=== PATIENT | male | born 1935 | race Caucasian/White ===

== ENCOUNTER → 2016-04-06 | Outpatient (CLI) | payer MEDICARE, BC ==
[2016-04-06 13:27] VITALS: BP 130/60; PULSE 49; RESP 18
--- NOTE | 2016-04-06 13:56 | P.PN ---
Progress Note - Text Patient returns for followup for chronic neck, low back and thoracic paravertebral pain without radiation. Patient recently underwent trigger point injections, which provided some relief for 2-3 weeks' interval. Patient continues on Bannister medications for pain from PCP with good relief. Patient denies adverse drug effects from medications. Today, pt denies new-onset weakness, bowel/bladder incontinence, or any other signs or symptoms of cauda equina syndrome. There are no signs of acute intoxication, and no indications of medication diversion or overuse. In addition to above, 13-point review of systems is also negative for chest pain , shortness of breath, changes in vision, changes in hearing, new onset weakness , abdominal pain, diarrhea, extreme fatigue, malaise, fever, skin changes, homicidal or suicidal ideation, or bowel or bladder incontinence. Vital Signs: Reviewed in EMR Gen: WDWN, AAOx3, NAD HEENT: NCAT, EOMI, hearing grossly normal Pulm: resp unlabored Abd: soft, NT, ND Neck: supple, trachea midline Cervical paravertebral tenderness: + Cervical Facet tenderness: ++ bilateral Lumbar paravertebral tenderness: ++ Thoracic paravertebral tenderness: ++ Facet loading: + bilateral SI joint tenderness: neg Júnior's test: neg Straight leg raise: neg Neuro: CN II-XII grossly intact, muscle strength lower extremities PRESERVED Imaging: Reviewed in EMR Assessment: 1. myofascial pain syndrome 2. chronic pain syndrome Plan: 1. Explanation: Opioid and psychological risk scores were reviewed. Diagnoses , prognoses, and multiple treatment options including but not limited to physical therapy, interventional therapies, adjuvant medical therapies, narcotic medication therapies, and surgery were discussed with the patient and all questions were answered to the patient's satisfaction. 2. Opioid agreement: no opioids prescribed today 3. Counseling: The patient was counseled extensively on SMOKING CESSATION, BODY MASS INDEX, EXERCISE. Specifically, the patient was instructed regarding the importance of smoking cessation, obesity, and exercise in the context of both chronic pain and overall health. 4. Procedures: trigger point injections in neck, low back, and mid-back areas 5. Consultations: None 6. Investigations: None 7. Medications: none prescribed 8. Disposition: f/u for TPI REUBEN PQRS measures: 1-Patient's medications are documented in the chart. 2-Tobacco use is negative 3-Patient has not had a pneumococcal vaccine. 4-Advanced care planning discussed, patient unable to give. 5-Opioid contract NOT signed with the patient as no opioids given. 6-Pain positive, follow-up visit or procedure scheduled 7-Patient's blood pressure measured and documented, and patient will follow up with the primary care due to hypertension. 8-Patient's weight was measured, and body mass index ABOVE the normal limits, and counseling was done. Patient instructed to follow up with PCP. 9-Patient WAS NOT identified as an unhealthy alcohol user.
== END | disposition home or self-care (01) ==
LOC: PNWHC3 12:35
PROVIDERS: ATTEND Anesthesiology
DX: M79.1 Myalgia (principal); G89.4 Chronic pain syndrome; I10 Essential (primary) hypertension
CPT/HCPCS: 99211

== ENCOUNTER 2016-04-07 08:22 | Day surgery (SDC) | payer MEDICARE, BC ==
[2016-04-07] MEDS ORDERED: LACTATED RINGERS 1,000 ML IV SCH (08:30)
[2016-04-07 08:53] VITALS: RESP 16; TEMP 97.2
[2016-04-07] MEDS ORDERED: LIDOCAINE 1% 20 ML VIAL (10MG/ML) FOR IV START INTRADERMA ONE (09:02)
[2016-04-07] MEDS ORDERED: TRIAMCINOLONE ACETONIDE 40 MG/ML 1 ML VIAL ONE (09:36)
[2016-04-07] MEDS ORDERED: fentaNYL (PF) 50 MCG/ML 2 ML AMP ONE (09:36)
[2016-04-07] MEDS ORDERED: BUPIVACAINE (PF) 0.25% 30 ML VIAL ONE (09:36)
[2016-04-07] MEDS ORDERED: MIDAZOLAM 2 MG/2 ML VIAL ONE (09:36)
--- NOTE | 2016-04-07 09:48 | P.PCN ---
Date of Procedure: 04/07/16 Preoperative Diagnosis: Myofascial pain in the cervical thoracic and lumbar paravertebral areas Severe lumbar degenerative disc disease Postoperative Diagnosis: Same as above Procedure(s) Performed: Trigger point injection in the cervical thoracic and lumbar paravertebral musculature Anesthesia: MAC Surgeon: Deshawn Escudero Pathology: none sent Condition: stable Disposition: PACU Description of Procedure: The patient was seen in preoperative holding area consent was obtained then he was brought into the procedure room and placed in the right lateral decubitus position. The trigger points were identified and skin was marked of these trigger points then skin was prepped with ChloraPrep. I used 25-gauge 1-1/2 inch needle to go through the skin and into the musculature first of the left cervical paravertebral musculature and left mid thoracic area and also on the left lumbar paravertebral musculature. I injected 1 mL of a solution made up of 4 MLS Marcaine 0.25% +40 mg of Kenalog and 1 mL of the solution was given in each trigger point. Patient tolerated procedure well.
[2016-04-07] MEDS ORDERED: IV FLUID CONTINUATION 1,000 ML IV ONE (09:59)
[2016-04-07 10:13] VITALS: BP 117/49; PULSE 58
== END 2016-04-07 10:50 | disposition home or self-care (01) ==
LOC: ORPAIN 08:22
PROVIDERS: ATTEND Anesthesiology
DX: M79.1 Myalgia (principal); M51.36 Other intervertebral disc degeneration, lumbar region; I10 Essential (primary) hypertension
CPT/HCPCS: 20553; J2250; J3301; J3010

== ENCOUNTER → 2016-06-09 | Outpatient (CLI) | payer MEDICARE, BC ==
[2016-06-09 12:11] VITALS: BP 146/74; PULSE 79; RESP 18
--- NOTE | 2016-06-09 13:19 | P.PN ---
Subjective This is follow-up visit for this patient with a history of severe and chronic low back pain secondary to lumbar degenerative disc disease Myofascial pain syndrome, rheumatoid arthritis, we have done , epidural steroid injection, and right thumb injection, and trigger point injection Currently is complaining of severe neck pain and low back pain, and he is getting prescription from his primary care , Neurontin, [place] 7.5 every 6 hours And voltaren gel Patient denies any side effects of the medication, denies excessive drowsiness or sleepiness, denies suicidal ideation, and reports that the current pain medication is NOT helping To control the pain and improve activity of daily living Physical Examinations : 1-Constitutiona : Cooperative , not in acute distress . 2-HEENT : nech ; supple , no Lymphadenopathy , no Thyromegaly , normal thyroid size . eyes : no ptosis , no icterus, no photophobia . ENT : normal of hearing , normal oropharynx , no Thrush . 3- Respiratory : Chest clear to auscultations Bilaterally , no wheezing , no Rhonchi . 4- Cardiovascular : regular rate and rhythem , S1 , S2 , no S3 , no S4. 5- Gastrointestinal : abdomen soft no tenderness , bowel sounds positive all four quadrents , no organomegally . 6- Genitourinary : Defferred . 7- neurologic : Cranial nerve II to XII intact , no focal neurological deffecit . 8-psychatric : alert , oriented X 3 , appropriate affect , intact judgment and insight . 9-Lymphatic : no Lymphadenopathy . 10- musculoskeltal : exams of the cervical spine = motor strength normal bilateral upper extremities facet loading test cervical area positive. Multiple trigger points identified in the cervical paravertebral muscles exams of the Lumber spine = motor strength lower extremities ,thigh and legs .5/5 deep tendon reflexes : normal Knee Jerk , normal ankle Jerk . lumber facet Loading Test positive strait leg raising test positive at 30 degree , RT ,LT , Fabere test positive RT and positive LT . Range of motion: Range of motion in flexion of the lumbar spine 30 degrees Range of motion range of motion of extension of the lumbar spine 10 Multiple trigger points identified in the lumbar paravertebral muscles Assessment and plan = - Chronic low back pain secondary to lumbar degenerative disc disease , myofascial pain syndrome lumbar and cervical area Clinical finding of cervical spondylosis with cervical facet arthropathy - diagnoses, prognosis, and treatment options including but not limited to physical therapy, surgical interventions, interventional therapies , and medication management including narcotics and adjuvant medication were discussed with the patient and all The questions answered -medication management = from his primary care -procedure= patient could benefit from lumbar /caudal epidural steroid injection and trigger point injections cervical/lumbar area Consultation given prescription for MRI of the cervical spine to evaluate the etiology of cervical spine Objective - Vital Signs Vital signs: Vital Signs Temp Pulse 79 06/09/16 12:01 Resp 18 06/09/16 12:01 BP 146/74 06/09/16 12:01 Pulse Ox 95 06/09/16 12:01 Intake & Output 06/08/16 06/09/16 06/09/16 18:59 06:59 18:59 Weight 83.915 kg
== END ==
LOC: PNWHC3 11:40
PROVIDERS: ATTEND Specialist
DX: M51.36 Other intervertebral disc degeneration, lumbar region (principal); M79.1 Myalgia; M47.816 Spondylosis without myelopathy or radiculopathy, lumbar region; M46.86 Other specified inflammatory spondylopathies, lumbar region; G89.29 Other chronic pain; Z87.891 Personal history of nicotine dependence
CPT/HCPCS: 99211

== ENCOUNTER → 2016-06-10 | Day surgery (SDC) | payer MEDICARE, BC ==
[~2016-06-10] MED LIST: LACTATED RINGERS 1,000 ML IV SCH
== END | disposition home or self-care (01) ==
LOC: ORPAIN 11:49
PROVIDERS: ATTEND Specialist
DX: Z53.9 Procedure and treatment not carried out, unspecified reason (principal)

== ENCOUNTER 2016-06-16 07:52 | Day surgery (SDC) | payer MEDICARE, BC ==
[2016-06-15 08:48] VITALS: BMI 25.0
[2016-06-16 09:26] VITALS: TEMP 97.8
[2016-06-16] MEDS ORDERED: LACTATED RINGERS 1,000 ML IV ONE (09:28)
[2016-06-16] MEDS ORDERED: LIDOCAINE 1% 20 ML VIAL (10MG/ML) FOR IV START INTRADERMA ONE (09:28)
[2016-06-16] MEDS ORDERED: fentaNYL (PF) 50 MCG/ML 2 ML AMP ONE (10:29)
[2016-06-16] MEDS ORDERED: IOHEXOL 180 MG/ML 1 ML ML ONE (10:29)
[2016-06-16] MEDS ORDERED: BUPIVACAINE (PF) 0.5% 30 ML VIAL ONE (10:29)
[2016-06-16] MEDS ORDERED: TRIAMCINOLONE ACETONIDE 40 MG/ML 1 ML VIAL ONE (10:29)
[2016-06-16] MEDS ORDERED: MIDAZOLAM 2 MG/2 ML VIAL ONE (10:29)
[2016-06-16] MEDS ORDERED: IV FLUID CONTINUATION 1,000 ML IV ONE (10:58)
--- NOTE | 2016-06-16 10:59 | P.PCN ---
Date of Procedure: 06/16/16 Preoperative Diagnosis: #1 severe persistent low back pain #2 bilateral lumbar radiculopathy #3 multiple level degenerative disc disease with neural foraminal stenosis number for signs and symptoms of neurogenic claudication due to spinal stenosis Postoperative Diagnosis: Same as preoperative diagnoses Procedure(s) Performed: #1 caudal epidural injection with local anesthetic and corticosteroid utilizing fluoroscopic assistance to aid with needle placement #2 trigger point injections at 3 locations in the paracervical musculature and trapezius Anesthesia: MAC Surgeon: Christian Fritz Estimated Blood Loss (ml): 5 IV fluids (ml): 250 Urine output (ml): 0 Pathology: none sent Condition: stable Disposition: PACU Indications for Procedure: Please refer to preoperative diagnosis in history of present illness available on the [facility] chart Description of Procedure: DESCRIPTION OF PROCEDURE: The patient was taken to the operating room, where full external monitors and supplemental nasal oxygen were placed by the department of anesthesiology. The patient was positioned in a prone position with a pillow beneath her lower abdomen and upper pelvis in an attempt to more fully flex the lumbar spine. A wide field Betadine prep was performed to her low back and the area was draped in the usual sterile technique. Appropriate intravenous sedation to effect was provided by the department of anesthesia. Initial attention was paid at gaining access to the caudal canal. The skin and subcutaneous tissue immediately overlying the cephalad border of the anal crease was anesthetized with 5 mL of 1% preservative-free Xylocaine in a field block technique. Through the previously anesthetized area, a #22-gauge x 3- inch spinal needle was advanced. This spinal needle was advanced under live fluoroscopic imaging in the lateral projection until the tip of the spinal needle was seen to course through the sacral hiatus, blanco the sacrococcygeal ligament and enter the caudal epidural canal. Appropriate needle placement was confirmed using both anterior-posterior and lateral projections. Once appropriate needle position was confirmed, 4.5 mL of Omnipaque contrast material were injected through the spinal needle after negative aspiration. An excellent spread of the contrast was noted upon live fluoroscopic imaging. Contrast was noted to ascend in the epidural space through the sacral and into the lumbar epidural region. Contrast appeared to flow freely throughout the lumbar epidural space. At this point and time, following appropriate contrast injection of therapeutic injectate containing 60 mg of Depo-Medrol, 5 mL of 0.25 % preservative-free Marcaine and 3 mL of 0.9% preservative-free normal saline were injected through the spinal needle into the epidural space after negative aspiration. Excellent washout of the previously contrast material was noted with this injection. Following completion of the therapeutic injectate, the needle was removed, hemostasis was easily achieved and a sterile dressing was applied at this location. The previously identified area when the patient was awake in the preoperative holding area was marked with a skin scribe. The area was prepped with Betadine solution and draped in the normal sterile technique and 3 mL of 1% preservative- free lidocaine infiltrated into the skin and subcutaneous tissue. Through the previously anesthetized area, a 25-gauge 1-1/2 inch needle was advanced. A solution containing 6 mL of 0.25% preservative-free Marcaine and 40 mg of Depo- Medrol was fanned out in the previously noted affected area. The injection was performed with intermittent negative aspiration in a fan technique throughout the sensitive area. The needle was withdrawn. Hemostasis was noted and a sterile dressing was applied. The patient tolerated the entire procedure without any difficulty or complication. The patient was taken back to the post anesthesia care unit in stable and satisfactory condition and monitored there for approximately 45 minutes. After an uneventful stay in the recovery room, the patient was transferred back to the nursing unit in stable and excellent condition and was instructed to follow up with the [facility]. Again, it has been a pleasure participating in this patient's care. I look forward to hearing from this patient and seeing the patient in the days and weeks to come.
[2016-06-16 11:02] VITALS: RESP 18
[2016-06-16 11:19] VITALS: BP 124/78; PULSE 72
--- NOTE | 2016-06-16 13:03 | FL ---
Fluoroscopy HISTORY: Pain 3 seconds fluoroscopy time supplied to the referring clinician. 2 intraoperative C-arm images docume nt the procedure. See dictated report from anesthesia.
--- NOTE | 2016-06-21 12:15 | CDI ---
Dear Dr. Fritz, The Procedure Note documents that MAC Anesthesia was provided On the Pain Procedure Record, however, Moderate Sedation is checked under Anesthesia Plan. This is conflicting documentation that needs clarification for proper reporting purposes. Please clarify if the anesthesia provided to Kirt Sky it was MAC (Monitored Anesthesia Care) or Moderate/conscious sedation. PLEASE DOCUMENT THIS CLARIFICATION AN ADDENDUM TO THE PROCEDURE NOTE. If you have any questions regarding this query, you may contact Fransisca Cat , Farm Mechanic at . Thank you for your time, Claudia [facility] Outpatient Intelligence Clerk Riley MTDD
== END 2016-06-16 11:30 | disposition home or self-care (01) ==
LOC: ORPAIN 07:52
PROVIDERS: ATTEND Anesthesiology
DX: G89.29 Other chronic pain (principal); M54.5 Low back pain; M51.16 Intervertebral disc disorders with radiculopathy, lumbar region; M48.06 Spinal stenosis, lumbar region; G95.19 Other vascular myelopathies; Z95.1 Presence of aortocoronary bypass graft
CPT/HCPCS: 99152; 62323; J2250; J3301; Q9965; J3010

== ENCOUNTER 2016-07-19 07:21 | Day surgery (SDC) | payer MEDICARE, BC ==
[2016-07-15 09:20] VITALS: BMI 25.0
[2016-07-19 07:49] VITALS: TEMP 97.4
[2016-07-19] MEDS ORDERED: LIDOCAINE 1% 20 ML VIAL (10MG/ML) FOR IV START INTRADERMA ONE (07:49)
[2016-07-19] MEDS ORDERED: fentaNYL (PF) 50 MCG/ML 2 ML AMP ONE (08:14)
[2016-07-19] MEDS ORDERED: BUPIVACAINE (PF) 0.5% 30 ML VIAL ONE (08:14)
[2016-07-19] MEDS ORDERED: TRIAMCINOLONE ACETONIDE 40 MG/ML 1 ML VIAL ONE (08:14)
[2016-07-19] MEDS ORDERED: IOHEXOL 180 MG/ML 1 ML ML ONE (08:14)
[2016-07-19] MEDS ORDERED: MIDAZOLAM 2 MG/2 ML VIAL ONE (08:14)
--- NOTE | 2016-07-19 08:45 | P.PCN ---
Date of Procedure: 07/19/16 Procedure(s) Performed: PREOPERATIVE DIAGNOSIS: 1-lumbar degenerative disc disease. 2-myofascial pain syndrome , cervical area POSTOPERATIVE DIAGNOSIS: Same as preoperative diagnosis PROCEDURE: 1. Caudal epidural steroid injection under fluoroscopic guidance. 2. Caudal epidurogra. 3-trigger point injections, cervical paravertebral muscles, total of 5 trigger points injected 3 on the right side and 2 on the left side ANESTHESIA: Local with 1% lidocaine; 5ml for subcutaneous infiltrations and IV versed mg ,and fentanyl mcg EBL: None. PROCEDURE INDICATION: The patient with neuropathic pain radiating distally returns for caudal epidural steroid injection. PROCEDURE DESCRIPTION: The patient was seen and identified in the preoperative area. Risks, benefits, complications, and alternatives were discussed with the patient. The patient agreed to proceed with the procedure and signed the consent. IV was started, and vital signs were stable. Patient was taken to the OR and time out was completed. The patient was placed in the prone position on procedure table and a pillow was placed under the abdomen to reduce lumbar lordosis. The lumbosacral area was prepped and draped in the usual sterile fashion. Critical pause was taken. Vital signs were closely monitored during the procedure. Using lateral fluoroscopy the anterior-posterior plates of the sacrum were identified and the skin and deeper tissues corresponding into sacrococcygeal ligament were anesthetized using approximately 3 mL of 1% lidocaine. Then under fluoroscopy, a 3-1/2-inch 20-gauge Tuohy epidural needle was guided through the sacrococcygeal ligament, and into the epidural space. After negative aspiration , a 2 mL of omnipaque-180 contrast dye was injected with excellent epidurogram. Again after negative aspiration for CSF, blood, and with no paresthesias, Kenalog 80mg, 2ml of 1% preservative free Lidocaine with 6 ml of preservative free normal saline(total of 10ml)solution was injected with washout of epidurogram. Needle was withdrawn intact. Skin was cleansed, and bandage was applied. then the cervical area, prepped with chlorhexidine 3, under sterile technique each of the trigger point, that is marked in the preop holding area, 3 on the right side cervical paravertebral muscles, and 2 on the left-sided cervical paravertebral muscles ,each one of them injected with Marcaine 0.5% , 2 mL injected at each trigger point, after negative aspiration , and there was no paresthesia during the injection, using 25-gauge needle, pateints tolerated the procedure well without any complications COMPLICATIONS: None DISPOSITION / PLANS: The patient was placed in a supine position and transferred to the recovery area in a stable condition for observation and was discharged from the recovery room after meeting discharge criteria. Home discharge instructions given to the patient by the staff. The patient was reexamined prior to discharge. The patient will schedule a follow up in the clinic in 2-4 weeks.
[2016-07-19] MEDS ORDERED: IV FLUID CONTINUATION 1,000 ML IV ONE (08:47)
--- NOTE | 2016-07-19 08:47 | P.PN ---
Progress Note - Text This is an to the note dictated 2 minutes ago= years IV sedation for the procedure , 2 mg of Versed, 100 g fentanyl
--- NOTE | 2016-07-19 08:51 | FL ---
EXAMINATION TYPE: FL guided pain mgmt statistic DATE OF EXAM: 07/19/2016 8:43 AM CLINICAL HISTORY: Low back and sacral pain. TECHNIQUE: Fluoroscopy. COMPARISON: None. FINDINGS: Fluoroscopic guidance was provided during pain relief procedure performed by Dr. Queen . A total of 8 seconds of fluoroscopic time was utilized during the procedure and single spot image is acquired. Single image acquired shows needle localization at level of sacrum. IMPRESSION: As Above.
[2016-07-19 08:52] VITALS: RESP 16
[2016-07-19 09:03] VITALS: BP 139/75; PULSE 78
== END 2016-07-19 09:26 | disposition home or self-care (01) ==
LOC: ORPAIN 07:21
PROVIDERS: ATTEND Specialist
DX: M51.36 Other intervertebral disc degeneration, lumbar region (principal); M79.1 Myalgia; Z88.8 Allergy status to other drugs, medicaments and biological substances
CPT/HCPCS: 20553; 62323; J2250; J3301; Q9965; J3010

== ENCOUNTER 2016-08-12 08:00 | Day surgery (SDC) | payer MEDICARE, BC ==
[2016-08-09 13:50] VITALS: BMI 26.4
[2016-08-12] MEDS ORDERED: LACTATED RINGERS 1,000 ML IV SCH (08:45)
[2016-08-12] MEDS ORDERED: LIDOCAINE 1% 20 ML VIAL (10MG/ML) FOR IV START INTRADERMA ONE (08:54)
[2016-08-12 08:56] VITALS: TEMP 97.8
[2016-08-12] MEDS ORDERED: fentaNYL (PF) 50 MCG/ML 2 ML AMP ONE (09:13)
[2016-08-12] MEDS ORDERED: MIDAZOLAM 2 MG/2 ML VIAL ONE (09:13)
[2016-08-12] MEDS ORDERED: IOHEXOL 180 MG/ML 1 ML ML ONE (09:13)
[2016-08-12] MEDS ORDERED: TRIAMCINOLONE ACETONIDE 40 MG/ML 1 ML VIAL ONE (09:13)
[2016-08-12] MEDS ORDERED: BUPIVACAINE (PF) 0.25% 30 ML VIAL ONE (09:13)
--- NOTE | 2016-08-12 09:39 | P.PCN ---
Date of Procedure: 08/12/16 Preoperative Diagnosis: Lumbar degenerative disc disease Myofascial pain Postoperative Diagnosis: Same as above Procedure(s) Performed: Caudal epidural steroid injection under fluoroscopic guidance Trigger point injection in the cervical paravertebral area Implants: Anesthesia: other (Moderate sedation) Surgeon: Deshawn Escudero Pathology: none sent Condition: stable Disposition: PACU Indications for Procedure: Operative Findings: Description of Procedure: The patient was seen in the preop holding area consent was obtained then he was brought into the procedure 1 placed in prone position. Skin was prepped with Betadine 3 and draped in a sterile manner. Lidocaine 1% was used to numb the skin up at the target point that was of the sacral hiatus using the lateral view of fluoroscopy. I used 20-gauge 3-1/2 inch Touhy epidural needle with loss -of-resistance to air to go through the sacral hiatus into the sacral canal. There was positive [id number] to air negative aspiration for any CSF or blood negative paresthesia. Then injected 1 mL of Omnipaque which showed typical spread in the epidural space on the lateral view and on AP view of fluoroscopy. Then I injected 40 mg of Kenalog +2 MLS of Marcaine 0.25% +7 MLS of preservative free normal saline to a total volume of 10 MLS of the epidural space. I then turned my attention into doing the trigger point injection in the cervical area. The trigger points were identified and the skin was marked of these trigger points that looks like he had to in the left cervical paravertebral musculature and 1 the left trapezius muscle. Each one I injected with 1 mL of Marcaine 0.25%. Patient tolerated procedures well.
[2016-08-12] MEDS ORDERED: IV FLUID CONTINUATION 1,000 ML IV ONE (09:40)
[2016-08-12 09:43] VITALS: RESP 18
--- NOTE | 2016-08-12 09:43 | FL ---
EXAMINATION TYPE: FL guided pain mgmt statistic DATE OF EXAM: 08/12/2016 9:35 AM HISTORY: Pain 11sec fluoro time, 2 images scanned. .
[2016-08-12 09:53] VITALS: BP 136/77; PULSE 75
== END 2016-08-12 10:07 | disposition home or self-care (01) ==
LOC: ORPAIN 08:00
PROVIDERS: ATTEND Anesthesiology
DX: M51.36 Other intervertebral disc degeneration, lumbar region (principal); M79.1 Myalgia
CPT/HCPCS: 20553; 62323; 99152; J2250; J3301; Q9965; J3010

== ENCOUNTER → 2016-09-07 | Outpatient (CLI) | payer MEDICARE, BC ==
--- NOTE | 2016-09-07 17:08 | XR ---
Abdomen HISTORY: Renal calculus Frontal view of the abdomen submitted on 2 images and correlated to prior right 2013 There is a calculus superimposed over the lower pole of the left kidney measuring approximately 8 to 9 mm. 2 calculi suspected over the right kidney, one of which measures approximately 8 mm in the seco nd 3 to 4 mm in the midpole region. There is a scoliotic curvature to the spine, degenerative disc ch anges are present. Vascular calcifications are present within the pelvis. Lung bases not included on the exam. Postop change stable to the left hip. IMPRESSION: Bilateral nephrolithiasis
== END | disposition home or self-care (01) ==
LOC: RADXRMAIN 14:22
PROVIDERS: ATTEND Urology
DX: N20.0 Calculus of kidney (principal)
CPT/HCPCS: 74000

== ENCOUNTER → 2016-09-24 | Outpatient (CLI) | payer MEDICARE, BC ==
[2016-09-24 14:04] LABS: Aty Lym Flag Slight; CH 37.7; CHCM 33.8; HCT 38.7 % (39.0-53.0); HDW 2.72; HGB 13.1 gm/dL (13.0-17.5); MCH 38.2 pg (25.0-35.0); MCV 112.2 fL (80.0-100.0); Macrocytosis Marked; Mean Platelet Volume 7.8; RBC 3.45 m/uL (4.30-5.90); RDW 14.2 % (11.5-15.5); WBC 6.4 k/uL (3.8-10.6); WBC (Perox) 6.84
[2016-09-24 14:22] LABS: Calcium 9.2 mg/dL (8.4-10.2); Potassium 3.3 mmol/L (3.5-5.1)
[2016-09-24 15:42] LABS: Add Differential Manual Differential
[2016-09-24 15:48] LABS: Manual Review Performed; Nucleated Red Blood Cells 0 /100 WBC (0-0); Total Cells Counted 100; Toxic Granulation Present
== END | disposition home or self-care (01) ==
LOC: LABPAT 13:25
PROVIDERS: ATTEND Physician Assistant
DX: Z01.810 Encounter for preprocedural cardiovascular examination (principal); N20.0 Calculus of kidney; C61 Malignant neoplasm of prostate; I10 Essential (primary) hypertension; Z01.812 Encounter for preprocedural laboratory examination
CPT/HCPCS: 80048; 85025

== ENCOUNTER 2016-10-04 10:05 | Day surgery (SDC) | payer MEDICARE, BC ==
[2016-09-29 15:54] VITALS: BMI 24.4
[~2016-10-04 10:05] MED LIST changes: +DEXAMETHASONE SOD PHOSPHATE 10 MG/ML 1 ML VIAL IV ONE; +HYDROmorphone 1 MG/ML 1 ML SYRINGE IVP PRN; +LIDOCAINE 1% 20 ML VIAL (10MG/ML) FOR IV START INTRADERMA PRN; +ONDANSETRON 4 MG/2 ML VIAL IVP ONE; +Pre Op ABX Message 1 EACH MISC MISCELLANE ONE
[2016-10-04 10:58] VITALS: RESP 18; TEMP 97.9
--- NOTE | 2016-10-04 11:54 | XR ---
EXAMINATION TYPE: XR KUB DATE OF EXAM: 10/04/2016 COMPARISON: 09/07/2016 HISTORY: Prelithotripsy for renal stones TECHNIQUE: One view abdominal series FINDINGS: The osseous structures are intact. The bowel gas pattern is nonspecific. Severe degenerative change lower lumbar spine with scoliosis. Arthropathy right hip and postsurgical change left hip. Vascular c alcifications in the pelvis appear stable. Her Right kidney: There are 2 calcifications measuring approximately 8 and 4 mm respectively. These appea r stable in size and position. Next Left kidney: There is a stable 8 mm lower pole left renal calculus. IMPRESSION: 1. Stable bilateral nephrolithiasis as measured above.
[2016-10-04] MEDS ORDERED: MIDAZOLAM 2 MG/2 ML VIAL ONE (12:02)
[2016-10-04] MEDS ORDERED: fentaNYL (PF) 50 MCG/ML 2 ML AMP ONE (12:02)
[2016-10-04] MEDS ORDERED: LIDOCAINE 1% INJ 10MG/ML (20 ML MDV) ONE (12:02)
[2016-10-04] MEDS ORDERED: KETAMINE 10 MG/ML 20 ML VIAL ONE (12:02)
[2016-10-04] MEDS ORDERED: PROPOFOL 10 MG/ML 20 ML VIAL IV ONE (12:02)
[2016-10-04] MEDS ORDERED: GLYCOPYRROLATE 0.2 MG/ML 2 ML VIAL ONE (12:02)
--- NOTE | 2016-10-04 12:51 | P.OP ---
Date of Procedure: 10/04/16 Preoperative Diagnosis: Right Renal Calculi Postoperative Diagnosis: Same Procedure(s) Performed: Right extracorporal shockwave lithotripsy (ESWL) Implants: Anesthesia: MAC Surgeon: Valentin Rodríguez Estimated Blood Loss (ml): 0 IV fluids (ml): 400 Pathology: none sent Condition: stable Disposition: PACU Indications for Procedure: He is a 81 year old male with a history of prostate cancer, for which he has undergone a robotic prostatectomy. He also has a history of recurrent calcium oxalate urolithiasis, for which he has undergone ESWL on multiple occasions. He underwent ureteroscopy with laser lithotripsy in 2013, and he now presents with right lower back and flank pain. His urine was normal. A KUB x-ray shows 2 right mid-pole renal calculi, for which he will undergo ESWL. Operative Findings: Calculus appears to fragment. Description of Procedure: The patient was taken to the operating room and placed on the Dornier Compact Delta II lithotripter in the supine position. The 7-8 mm mid-pole calculus was seen on biplanar fluoroscopy. Once the patient was properly positioned and sedated, lithotripsy was performed. The energy level was gradually increased per protocol, to an energy level of 5. After 200 shocks were administered, a 2 minute pause was instituted per protocol. A total of 2500 shocks were given at a rate of 80 shocks per minute. Fluoroscopy was utilized at a minimum to ensure proper positioning and determine the treatment status. The appearance of the calculus appeared to change, suggesting fragmentation had occurred. The patient tolerated the procedure well was taken to the recovery room in stable condition. Instructions were given to strain the urine, and the patient will follow-up within one week.
[2016-10-04] MEDS ORDERED: HYDROcodone/APAP 5-325MG 1 EACH TAB PO ONE (13:20)
[2016-10-04 13:31] VITALS: BP 160/78; PULSE 77
== END 2016-10-04 14:07 | disposition home or self-care (01) ==
LOC: ORWHC2ENDO 10:05
PROVIDERS: ATTEND Urology
DX: N20.0 Calculus of kidney (principal); Z85.46 Personal history of malignant neoplasm of prostate; Z90.79 Acquired absence of other genital organ(s); I11.0 Hypertensive heart disease with heart failure; R94.31 Abnormal electrocardiogram [ECG] [EKG]; I50.9 Heart failure, unspecified; I25.10 Atherosclerotic heart disease of native coronary artery without angina pectoris; M10.9 Gout, unspecified; E55.9 Vitamin D deficiency, unspecified; K21.9 Gastro-esophageal reflux disease without esophagitis; M19.90 Unspecified osteoarthritis, unspecified site; M06.9 Rheumatoid arthritis, unspecified; M51.36 Other intervertebral disc degeneration, lumbar region; M46.1 Sacroiliitis, not elsewhere classified; E78.5 Hyperlipidemia, unspecified; F03.90 Unspecified dementia, unspecified severity, without behavioral disturbance, psychotic disturbance, mood disturbance, and anxiety; M79.1 Myalgia; Z95.1 Presence of aortocoronary bypass graft; Z95.5 Presence of coronary angioplasty implant and graft; Z86.73 Personal history of transient ischemic attack (TIA), and cerebral infarction without residual deficits; I25.2 Old myocardial infarction; Z79.82 Long term (current) use of aspirin; Z79.899 Other long term (current) drug therapy; Z91.041 Radiographic dye allergy status; Z88.8 Allergy status to other drugs, medicaments and biological substances; Z87.891 Personal history of nicotine dependence
CPT/HCPCS: 84132; 74000; 50590; J2250; J1100; J2405; J2001; J3010; J2704

== ENCOUNTER → 2016-10-08 | Outpatient (CLI) | payer MEDICARE, BC ==
--- NOTE | 2016-10-08 12:17 | XR ---
EXAMINATION TYPE: XR KUB DATE OF EXAM: 10/08/2016 HISTORY: FOLLOW UP lithotripsy Comparison: 10/04/2016Single KUB is submitted for interpretation. Findings: Right renal calculi: None Visualized. Right ureteral calculi: Previously noted calculi right kidney are not well demonstrated however this could be related to overlying bowel content. Left renal calculi: 8 mm calculus mid to lower pole left kidney appears essentially unchanged. Left ureteral calculi: None Visualized. Pelvic calcifications: There appear to be new calcifications within the right hemipelvis which could reflect fragmented renal calculi. Additional phleboliths identified. Bowel gas pattern is unremarkable. No free air. No mass effects. IMPRESSION: 1. Previously noted calculi right kidney are not well demonstrated however this could be related to o verlying bowel content. There appear to be new calcifications within the right hemipelvis which coul d reflect fragmented renal calculi.
== END | disposition home or self-care (01) ==
LOC: RADXRMAIN 11:52
PROVIDERS: ATTEND Physician Assistant
DX: N20.0 Calculus of kidney (principal)
CPT/HCPCS: 74000

== ENCOUNTER → 2016-11-09 | Outpatient (CLI) | payer MEDICARE, BC ==
[2016-11-09 12:14] VITALS: BP 134/76; PULSE 60; RESP 16; TEMP 97.7
--- NOTE | 2016-11-09 14:30 | P.PN ---
Subjective This is follow-up visit for this patient with a history of severe and chronic low back pain secondary to lumbar degenerative disc diseases , l osteoarthritis, we have done interventional pain management injection,, lumbar epidural steroid injections, and right thumb injections 1-Neurontin 100 mg tid 2-[place] 7.5/325 every 6 hours , prescription from the primary care Patient denies any side effects of the medication, denies excessive drowsiness or sleepiness, denies suicidal ideation, and reports that the current pain medication is NOT helping To control the pain and improve activity of daily living Patient denies any motor or sensory deficit , patient denies any fever or night sweats, denies any change in the bowel movements or urination Physical Examinations : 1-Constitutiona : Cooperative , not in acute distress . 2-HEENT : nech ; supple , no Lymphadenopathy , no Thyromegaly , normal thyroid size . eyes : no ptosis , no icterus, no photophobia . ENT : normal of hearing , normal oropharynx , no Thrush . 3- Respiratory : Chest clear to auscultations Bilaterally , no wheezing , no Rhonchi . 4- Cardiovascular : regular rate and rhythem , S1 , S2 , no S3 , no S4. 5- Gastrointestinal : abdomen soft no tenderness , bowel sounds positive all four quadrents , no organomegally . 6- Genitourinary : Defferred . 7- neurologic : Cranial nerve II to XII intact , no focal neurological deffecit . 8-psychatric : alert , oriented X 3 , appropriate affect , intact judgment and insight . 9-Lymphatic : no Lymphadenopathy . 10- musculoskeltal : exams of the cervical spine = motor strength normal bilateral upper extremities facet loading test cervical area positive. exams of the Lumber spine = motor strength lower extremities ,thigh and legs .5/5 deep tendon reflexes : normal Knee Jerk , normal ankle Jerk . lumber facet Loading Test positive strait leg raising test positive at 30 degree , RT ,LT , Fabere test positive RT and positive LT . Range of motion: Range of motion in flexion of the lumbar spine 30 degrees Range of motion range of motion of extension of the lumbar spine 10 Sever tenderness over the Sacroiliac joint on the Right , and Left side Assessment and plan = Chronic low back pain secondary to lumbar degenerative disc disease , Osteoarthritis of the thumb - diagnoses, prognosis, and treatment options including but not limited to physical therapy, surgical interventions, interventional therapies , and medication management including narcotics and adjuvant medication were discussed with the patient and all the questions answered ,he is getting prescriptions refilled from his primary care , and will be scheduled to have repeat caudal/lumbar epidural steroid injection under fluoroscopy guidance in the next few weeks,
== END ==
LOC: PNWHC3 11:53
PROVIDERS: ATTEND Specialist
DX: M51.36 Other intervertebral disc degeneration, lumbar region (principal); M19.049 Primary osteoarthritis, unspecified hand
CPT/HCPCS: 99211

== ENCOUNTER 2016-12-02 09:15 | Day surgery (SDC) | payer MEDICARE, BC ==
[~2016-12-02 09:15] MED LIST changes: -DEXAMETHASONE SOD PHOSPHATE 10 MG/ML 1 ML VIAL IV ONE; -HYDROmorphone 1 MG/ML 1 ML SYRINGE IVP PRN; -LIDOCAINE 1% 20 ML VIAL (10MG/ML) FOR IV START INTRADERMA PRN; -ONDANSETRON 4 MG/2 ML VIAL IVP ONE; -Pre Op ABX Message 1 EACH MISC MISCELLANE ONE
[2016-12-02 09:39] VITALS: RESP 20; TEMP 98.3
[2016-12-02] MEDS ORDERED: LIDOCAINE 1% 20 ML VIAL (10MG/ML) FOR IV START INTRADERMA ONE (09:48)
--- NOTE | 2016-12-02 10:32 | FL ---
EXAMINATION TYPE: FL guided pain mgmt statistic DATE OF EXAM: 12/02/2016 HISTORY: Pain 21 SEC FL, 2 FILMS SCANNED
--- NOTE | 2016-12-02 10:43 | P.PCN ---
Date of Procedure: 12/02/16 Surgeon: Billy Gay Pathology: none sent Condition: stable Disposition: PACU Description of Procedure: PREOPERATIVE DIAGNOSIS: Lumbar post laminectomy syndrome and myofascial pain syndrome cervical area. POSTOPERATIVE DIAGNOSIS: same PROCEDURE: 1. Caudal epidural steroid injection under fluoroscopic guidance. 2. Caudal epidurogram. ANESTHESIA: Local with 1% lidocaine; IV sedation EBL: None. PROCEDURE INDICATION: This is a patient with postlaminectomy syndrome with uncontrolled pain who presents for caudal BENEDICT today. No use of blood thinners. PROCEDURE DESCRIPTION: The patient was seen and identified in the preoperative area. Risks, benefits, complications, and alternatives were discussed with the patient including but not limited to bleeding, infection, nerve damage, incomplete pain relief, and allergic reactions to medications. The patient agreed to proceed with the procedure and signed the consent. IV was started, and vital signs were stable. Patient was taken to the OR and time out was completed. The patient was placed in the prone position on procedure table and a pillow was placed under the abdomen to reduce lumbar lordosis. The lumbosacral area was prepped and draped in the usual sterile fashion. Vital signs were closely monitored during the procedure. Using lateral fluoroscopy the anterior-posterior plates of the sacrum were identified and the skin and deeper tissues corresponding into sacrococcygeal ligament were anesthetized using approximately 3 mL of 1% lidocaine. Then under fluoroscopy, a 3-1/2-inch 20-gauge Tuohy epidural needle/22-guage 3-1/2 inch spinal needle was guided through the sacrococcygeal ligament, and into the epidural space. After negative aspiration, a 1 mL of omnipaque-300 contrast dye was injected with excellent epidurogram. Again after negative aspiration for CSF , blood, and with no paresthesias, a solution containing Decadron 10mg, 2ml of 1 % preservative free lidocaine with 8 ml of preservative free normal saline ( total of 10 ml) solution was injected with washout of epidurogram. Needle was withdrawn intact. Skin was cleansed, and bandage was applied. Attention was then turned to the trigger points in the splenius capitus, cervical paravertebral muscles, and rhomboids. Each of the previously marked 5 areas was then infiltrated with 1% plain lidocaine using a 25g needle. After this, each point was entered with the same 25g needle and after a catch was felt, dry needling was performed. After negative aspiration at each point, 1 ml of a total of 5 ml (combination of 4 ml 0.5% bupivacaine and 40 mg Kenalog was injected in each area. Needle was withdrawn intact each time, and at the end, skin was cleansed, and bandages were applied. COMPLICATIONS: None. COMMENTS: DISPOSITION / PLANS: The patient was placed in a supine position and transferred to the recovery area in a stable condition for observation and was discharged from the recovery room after meeting discharge criteria. Home discharge instructions given to the patient by the staff. The patient was reexamined prior to discharge. The patient will schedule a repeat caudal BENEDICT + cervical paravertebral TPI in 4-6 weeks.
[2016-12-02 11:01] VITALS: BP 155/77; PULSE 70
[2016-12-02] MEDS ORDERED: IV FLUID CONTINUATION 1,000 ML IV ONE (11:02)
== END 2016-12-02 11:14 | disposition home or self-care (01) ==
LOC: ORPAIN 09:15
PROVIDERS: ATTEND Anesthesiology
DX: G89.29 Other chronic pain (principal); M54.5 Low back pain; M96.1 Postlaminectomy syndrome, not elsewhere classified; M79.1 Myalgia; Z79.891 Long term (current) use of opiate analgesic; Z79.899 Other long term (current) drug therapy
CPT/HCPCS: 20553; 62323; J2250; J1100; J3301; J3010; 99152; 99153

== ENCOUNTER 2017-06-21 08:03 | Day surgery (SDC) | payer MEDICARE, BC ==
[2017-06-16 12:36] VITALS: BMI 29.8
[2017-06-21 08:49] VITALS: RESP 18; TEMP 98
[2017-06-21] MEDS ORDERED: LACTATED RINGERS 1,000 ML IV ONE (08:49)
[2017-06-21] MEDS ORDERED: LIDOCAINE 1% 20 ML VIAL (10MG/ML) FOR IV START INTRADERMA ONE (08:50)
--- NOTE | 2017-06-21 10:13 | FL ---
Fluoroscopy INDICATION: Pain FINDINGS: Fluoroscopy time: 3 seconds. Images obtained: 2. IMPRESSIONS: 1. Documentation of fluoroscopy.
--- NOTE | 2017-06-21 10:15 | P.PCN ---
Date of Procedure: 06/21/17 Procedure(s) Performed: PREOPERATIVE DIAGNOSIS: 1-lumbar degenerative disc disease. 2-myofascial pain syndrome and cervical area POSTOPERATIVE DIAGNOSIS: Same as preoperative diagnoses PROCEDURE: 1. Caudal epidural steroid injection under fluoroscopic guidance. 2. Caudal epidurogram. 3-triggerpoints injections and cervical paravertebral muscles total of 5 trigger points injected, the right side cervical paravertebral muscles ,and 2 on the left sided cervical paravertebral muscles ANESTHESIA: Local with 1% lidocaine; 3ml for subcutaneous infiltrations and IV versed 1 mg ,and fentanyl 50 mcg EBL: None. PROCEDURE INDICATION: The patient with neuropathic pain radiating distally returns for caudal epidural steroid injection. PROCEDURE DESCRIPTION: The patient was seen and identified in the preoperative area. Risks, benefits, complications, and alternatives were discussed with the patient. The patient agreed to proceed with the procedure and signed the consent. IV was started, and vital signs were stable. Patient was taken to the OR and time out was completed. The patient was placed in the prone position on procedure table and a pillow was placed under the abdomen to reduce lumbar lordosis. The lumbosacral area was prepped and draped in the usual sterile fashion. Critical pause was taken. Vital signs were closely monitored during the procedure. Using lateral fluoroscopy the anterior-posterior plates of the sacrum were identified and the skin and deeper tissues corresponding into sacrococcygeal ligament were anesthetized using approximately 3 mL of 1% lidocaine. Then under fluoroscopy, a 3-1/2-inch 20-gauge Tuohy epidural needle was guided through the sacrococcygeal ligament, and into the epidural space. After negative aspiration , a 2 mL of omnipaque-180 contrast dye was injected with excellent epidurogram. Again after negative aspiration for CSF, blood, and with no paresthesias, Kenalog 80mg, 2ml of 1% preservative free Lidocaine with 6 ml of preservative free normal saline(total of 10ml)solution was injected with washout of epidurogram. Needle was withdrawn intact. Skin was cleansed, and bandage was applied. then the triggerpoints which was marked in the preop holding area, 3 trigger points in the right side cervical paravertebral muscles and 2 on the left side cervical paravertebral muscles each one of them injected with Marcaine 0.5%, 2 mL injected at each trigger point after negative aspiration, injection done under sterile technique, the cervical area was prepped with chlorhexidine, and 25-gauge needle used, and there was no paresthesia during the injection, total of 10 ML of Marcaine 0.5% used , 2 mL injected at each trigger point COMPLICATIONS: None DISPOSITION / PLANS: The patient was placed in a supine position and transferred to the recovery area in a stable condition for observation and was discharged from the recovery room after meeting discharge criteria. Home discharge instructions given to the patient by the staff. The patient was reexamined prior to discharge. The patient will schedule a follow up in the clinic in 2-4 weeks.
[2017-06-21] MEDS ORDERED: IV FLUID CONTINUATION 1,000 ML IV ONE (10:21)
[2017-06-21 10:38] VITALS: BP 179/86; PULSE 63
== END 2017-06-21 11:00 | disposition home or self-care (01) ==
LOC: ORPAIN 08:03
PROVIDERS: ATTEND Specialist
DX: M79.1 Myalgia (principal); M51.36 Other intervertebral disc degeneration, lumbar region; I25.10 Atherosclerotic heart disease of native coronary artery without angina pectoris; I11.0 Hypertensive heart disease with heart failure; M96.1 Postlaminectomy syndrome, not elsewhere classified; I50.9 Heart failure, unspecified; F03.90 Unspecified dementia, unspecified severity, without behavioral disturbance, psychotic disturbance, mood disturbance, and anxiety; Z86.73 Personal history of transient ischemic attack (TIA), and cerebral infarction without residual deficits; Z88.8 Allergy status to other drugs, medicaments and biological substances
CPT/HCPCS: 20553; 62323; J2250; J3301; J3010; Q9966; 99152

== ENCOUNTER → 2017-10-05 | Outpatient (CLI) | payer MEDICARE, BC ==
[2017-10-05 12:07] VITALS: BP 149/72; PULSE 62; RESP 16
--- NOTE | 2017-10-05 16:06 | P.PAINPG ---
Subjective Progress Note Date: 10/05/17 This is follow-up visit for this patient with a history of severe and chronic low back pain secondary to lumbar degenerative disc diseases , and myofascial pain syndrome and cervical, We have done interventional pain procedures, caudal epidural steroid injections and trigger point injections in the cervical area Patient reported that he had excellent pain relief after the injections Patients currently on [place] 7.5/325 and is getting prescription refills from his primary care Patient denies any side effects of the medication, denies excessive drowsiness or sleepiness, denies suicidal ideation, and reports that the current pain medication is helping to control the pain and improve activity of daily living Patient denies any motor or sensory deficit , patient denies any fever or night sweats, denies any change in the bowel movements or urination Physical Examinations : 1-Constitutional : Cooperative , not in acute distress . 2-HEENT : nech ; supple , no Lymphadenopathy , no Thyromegaly , normal thyroid size . eyes : no ptosis , no icterus, no photophobia . ENT : normal of hearing , normal oropharynx , no Thrush . 3- Respiratory : Chest clear to auscultations Bilaterally , no wheezing , no Rhonchi . 4- Cardiovascular : regular rate and rhythem , S1 , S2 , no S3 , no S4. 5- Gastrointestinal : abdomen soft no tenderness , bowel sounds positive all four quadrents , no organomegally . 6- Genitourinary : Defferred . 7- neurologic: Cranial nerve II to XII intact , no focal neurological deffecit . 8- Psychatric: alert , oriented X 3 , appropriate affect , intact judgment and insight . 9- Lymphatic : no Lymphadenopathy . 10- Musculoskeltal : exams of the cervical spine = motor strength normal bilateral upper extremities Multiple trigger points identified in the cervical area trapezius muscles and rhomboid muscles . exams of the Lumber spine =motor strength lower extremities ,thigh and legs .5/5 deep tendon reflexes : normal Knee Jerk , normal ankle Jerk . lumber facet Loading Test positive strait leg raising test positive at 30 degree , RT ,LT , Fabere test positive RT and positive LT . Range of motion: Range of motion in flexion of the lumbar spine 30 degrees Range of motion range of motion of extension of the lumbar spine 10 Assessment and plan = Chronic low back pain secondary to lumbar degenerative disc disease , myofascial pain syndrome and cervical area Patient could benefit from a repeat caudal epidural steroid injections and trigger point injections cervical area Objective - Vital Signs Vital signs: Vital Signs Temp Pulse 62 10/05/17 11:57 Resp 16 10/05/17 11:57 BP 149/72 10/05/17 11:57 Pulse Ox 97 10/05/17 11:57 Intake & Output 10/04/17 10/05/17 10/05/17 18:59 06:59 18:59 Weight 86.183 kg PQRS Measure Charge Sheet Measure #130: Documentation of Current Meds in Medical Chart: Patient's medications documented in chart Measure #226: Tobacco Use: Screen & Cessation Intervention: Pt not a tobacco user Measure #111: Pneumonia Vaccination: Pneumococcal vaccine administered or previously received Measure #47: Advance Care Plan: Advance care planning discussed & documented, pt chose/unable to give Measure #412: Opioid Treatment Agreement: No documentation of signed opioid treatment agreement Measure #408: Opioid Therapy Follow-up Evaluation: Patient had NO f/u eval minimum every 3 months during opioid therapy Measure #317: Preventitive Care & Scrn High Bld Press & F/U: Pre-hypertensive or hypertensive BP documented, pt will f/u with PCP Measure #128: Body Mass Index (BMI) Screening & Follow-up: BMI documented ABOVE normal parameters - f/u documented Measure #131: Pain Assessment & Follow-up: Pain positive & plan documented, Follow-up scheduled Measure #431: Unhealthy Alcohol Use Preventative Care & Scrn: Patient not identified as an unhealthy alcohol user PQRS Narrative: Smoking Status Never smoker Do You Want the Pneumonia Vaccine Up to Date Vaccine AT THIS TIME? Narcotic Agreement Date Signed 10/15/13 Blood Pressure 149/72 Pain Intensity [Bilateral Back 10 ] Scale Used Numeric (1 - 10) Hx Alcohol Use (MH) Yes: rare Home Medications: Ambulatory Orders Amiodarone HCl [Pacerone] 200 mg PO QAM 08/02/13 Aspirin 81 mg PO HS 08/02/13 Atorvastatin [Lipitor] 20 mg PO QAM 08/02/13 Furosemide [Lasix] 40 mg PO QAM 08/02/13 Loratadine [Claritin] 10 mg PO DAILY 08/02/13 Potassium Chloride [Potassium Chloride ER] 20 meq PO TID 08/02/13 levETIRAcetam [Keppra] 500 mg PO Q12HR 08/02/13 ALPRAZolam [Xanax] 0.25 mg PO BID PRN 04/06/16 Cyanocobalamin [Vitamin B-12 Injection] 1 ml IM Q90D 04/06/16 Diclofenac Sodium Gel [Voltaren Gel] 1 gram TOPICAL BID 04/06/16 Etanercept [Enbrel] 0.98 ml SQ GARAY 04/06/16 Famotidine 40 mg PO DAILY 04/06/16 Gabapentin 100 mg PO QID 04/06/16 HYDROcodone/APAP 7.5-325MG [[place] 7.5-325] 1 tab PO QID 04/06/16 Metolazone 2.5 mg PO Q3D PRN 04/06/16 Furosemide [Lasix] 20 mg PO HS 12/01/16 Controlled Substance Measures - Controlled Substance Measures Is patient prescribed a controlled substance at discharge?: No When asked, does pt state using other controlled substances?: No If prescribed controlled substance>3 days was MAPS reviewed?: No If Rx opioid, was Start Talking consent form obtained?: No If opioid is for acute pain is fill amount 7 days or less?: No Was information provided regarding opioid addiction?: No
== END | disposition home or self-care (01) ==
LOC: PNWHC3 10:56
PROVIDERS: ATTEND Specialist
DX: G89.29 Other chronic pain (principal); M54.5 Low back pain; M51.36 Other intervertebral disc degeneration, lumbar region; M79.1 Myalgia; Z79.891 Long term (current) use of opiate analgesic; Z79.82 Long term (current) use of aspirin; Z79.899 Other long term (current) drug therapy
CPT/HCPCS: 99211

== ENCOUNTER 2017-10-18 08:05 | Day surgery (SDC) | payer MEDICARE, BC ==
[2017-10-11 15:35] VITALS: BMI 29.0
[2017-10-18 08:36] VITALS: TEMP 97.6
--- NOTE | 2017-10-18 09:21 | P.PCN ---
Date of Procedure: 10/18/17 Surgeon: Don Oropeza Description of Procedure: Preoperative Diagnosis: myofascial pain syndrome of Postoperative diagnosis: Same Anesthesia: Local Surgeon: Don Oropeza MD Indications for procedure: This is a 82-year-old patient with myofascial pain and palpable trigger points in bilateral trapezius muscles. The patient consents for an injection after an explanation of risks including but not limited to bleeding and infection, benefits, and alternatives and the patient has signed a consent form indicating understanding of all of them. Description of procedure: After informed consent was obtained the patient's back was sterilely prepped in the usual fashion with ChloraPrep. 6 trigger points were identified via palpation of the trapezius muscles and marked sterilely. Each trigger point was injected with a 25-gauge half inch needle, with 1 mL of 0. 5% bupivacaine with 40 mg of Depo-Medrol for total of 7 mls. The patient's vital signs were stable afterwards and the procedure was tolerated well. Patient was discharged home with follow-up instructions. PREOPERATIVE DIAGNOSIS: Lumbar post laminectomy syndrome. POSTOPERATIVE DIAGNOSIS: Lumbar post laminectomy syndrome. PROCEDURE: 1. Caudal epidural steroid injection under fluoroscopic guidance. 2. Caudal epidurogram ANESTHESIA: Local with 1% lidocaine. IV sedation. EBL: None. Surgeon: Don Oropeza MD PROCEDURE INDICATION: This is a 82-year-old gentleman with a history of previous back surgery who is intractable back and leg pain and presents today for caudal epidural steroid injection. PROCEDURE DESCRIPTION: The patient was seen and identified in the preoperative area. Risks, benefits, complications, and alternatives were discussed with the patient. The patient agreed to proceed with the procedure and signed the consent. IV was started, and vital signs were stable. Patient was taken to the OR and time out was completed. The patient was placed in the prone position on procedure table and a pillow was placed under the abdomen to reduce lumbar lordosis. The lumbosacral area was prepped and draped in the usual sterile fashion. Critical pause was taken. Vital signs were closely monitored during the procedure. Using lateral fluoroscopy the anterior-posterior plates of the sacrum were identified and the skin and deeper tissues corresponding into sacrococcygeal ligament were anesthetized using approximately 3 mL of 1% lidocaine. Then under fluoroscopy, a 3-1/2-inch 20-gauge spinal needle was guided through the sacrococcygeal ligament, and into the epidural space. After negative aspiration , a 2 mL of omnipaque-180 contrast dye was injected with excellent epidurogram. Again after negative aspiration for CSF, blood, and with no paresthesias, depomedrol 40mg,with 4 ml of preservative free normal saline solution was injected with washout of epidurogram. Needle was withdrawn intact. Skin was cleansed, and bandage was applied. COMPLICATIONS: None DISPOSITION / PLANS: The patient was placed in a supine position and transferred to the recovery area in a stable condition for observation and was discharged from the recovery room after meeting discharge criteria. Home discharge instructions given to the patient by the staff. The patient was reexamined prior to discharge. The patient will schedule a follow up in the clinic in 2-4 weeks.
[2017-10-18] MEDS ORDERED: IV FLUID CONTINUATION 1,000 ML IV ONE (09:51)
[2017-10-18 09:53] VITALS: RESP 18
[2017-10-18 10:12] VITALS: BP 167/73; PULSE 78
--- NOTE | 2017-10-18 11:32 | FL ---
Fluoroscopy INDICATION: Pain FINDINGS: Fluoroscopy time: 1 seconds. Images obtained: 1. IMPRESSIONS: 1. Documentation of fluoroscopy.
== END 2017-10-18 10:27 | disposition home or self-care (01) ==
LOC: ORPAIN 08:05
PROVIDERS: ATTEND Pain Medicine Pain Medicine
DX: G89.29 Other chronic pain (principal); M96.1 Postlaminectomy syndrome, not elsewhere classified; M79.1 Myalgia; M51.36 Other intervertebral disc degeneration, lumbar region; Z79.891 Long term (current) use of opiate analgesic; Z79.82 Long term (current) use of aspirin; Z79.899 Other long term (current) drug therapy; Z88.8 Allergy status to other drugs, medicaments and biological substances; Z95.1 Presence of aortocoronary bypass graft
CPT/HCPCS: 20552; 62323; J1030; J3010

== ENCOUNTER 2017-12-26 09:45 | Day surgery (SDC) | payer MEDICARE, BC ==
[2017-12-09 09:06] VITALS: BMI 26.1
[2017-12-26 10:26] VITALS: TEMP 97.4
[2017-12-26] MEDS ORDERED: LIDOCAINE 1% 20 ML VIAL (10MG/ML) FOR IV START INTRADERMA ONE (10:27)
--- NOTE | 2017-12-26 11:33 | P.PCN ---
Date of Procedure: 12/26/17 Surgeon: Deshawn Escudero Pathology: none sent Condition: stable Disposition: PACU Description of Procedure: PREOPERATIVE DIAGNOSIS: Lumbar post laminectomy syndrome, myofascial pain POSTOPERATIVE DIAGNOSIS: Lumbar post laminectomy syndrome, myofascial pain PROCEDURE: 1. Caudal epidural steroid injection under fluoroscopic guidance. 2. Caudal epidurogram 3-trigger point injection in the lumbar paravertebral musculature ANESTHESIA: Local with 1% lidocaine. IV sedation. EBL: Negligible PROCEDURE INDICATION: This is a 82-year-old gentleman with a history of previous back surgery who is intractable back and leg pain and presents today for caudal epidural steroid injection. PROCEDURE DESCRIPTION: The patient was seen and identified in the preoperative area. Risks, benefits, complications, and alternatives were discussed with the patient. The patient agreed to proceed with the procedure and signed the consent. IV was started, and vital signs were stable. Patient was taken to the OR and time out was completed. The patient was placed in the prone position on procedure table and a pillow was placed under the abdomen to reduce lumbar lordosis. The lumbosacral area was prepped and draped in the usual sterile fashion. Critical pause was taken. Vital signs were closely monitored during the procedure. Using lateral fluoroscopy the anterior-posterior plates of the sacrum were identified and the skin and deeper tissues corresponding into sacrococcygeal ligament were anesthetized using approximately 3 mL of 1% lidocaine. Then under fluoroscopy, a 3-1/2-inch 20-gauge spinal needle was guided through the sacrococcygeal ligament, and into the epidural space. After negative aspiration , a 2 mL of omnipaque-180 contrast dye was injected with excellent epidurogram. Again after negative aspiration for CSF, blood, and with no paresthesias, depomedrol 40mg,with 4 ml of preservative free normal saline solution was injected with washout of epidurogram. Needle was withdrawn intact. Skin was cleansed, and bandage was applied. I then turned my attention into doing the trigger point injections in the lumbar paravertebral musculature. I used 25-gauge 1-1/2 inch needle to go through the skin at the trigger points marked previously and injected 1 mL of Marcaine 0.5%. A total of 3 trigger points were injected. COMPLICATIONS: None DISPOSITION / PLANS: The patient was placed in a supine position and transferred to the recovery area in a stable condition for observation and was discharged from the recovery room after meeting discharge criteria. Home discharge instructions given to the patient by the staff. The patient was reexamined prior to discharge. The patient will schedule a follow up in the clinic in 2-4 weeks.
[2017-12-26] MEDS ORDERED: IV FLUID CONTINUATION 1,000 ML IV ONE ×2 (11:50)
--- NOTE | 2017-12-26 12:10 | FL ---
EXAMINATION TYPE: FL guided pain mgmt statistic DATE OF EXAM: 12/26/2017 COMPARISON: NONE HISTORY: Pain TECHNIQUE: Fluoroscopy. FINDINGS/IMPRESSION: Fluoroscopic guidance was provided during procedure performed by Dr. Escudero. A total of 8 seconds of fluoroscopic time was utilized during the procedure and 1 spot images was acq uired during a caudal nerve root injection.
[2017-12-26 12:11] VITALS: BP 180/86; PULSE 59; RESP 16
== END 2017-12-26 12:36 | disposition home or self-care (01) ==
LOC: ORPAIN 09:45
PROVIDERS: ATTEND Anesthesiology
DX: M96.1 Postlaminectomy syndrome, not elsewhere classified (principal); M79.10 Myalgia, unspecified site
CPT/HCPCS: 20553; 62323; J2250; J3301; J3010; Q9966

== ENCOUNTER → 2018-02-01 | Outpatient (CLI) | payer MEDICARE, BC ==
[2018-02-01 13:46] VITALS: PULSE 92; RESP 16
--- NOTE | 2018-02-02 19:42 | P.PN ---
Subjective Progress Note Date: 02/02/18 This is follow-up visit for this patient with a history of severe and chronic low back pain secondary to lumbar degenerative disc diseases , and myofascial pain syndrome and cervical, We have done interventional pain procedures, caudal epidural steroid injections and trigger point injections in the cervical area Patient reported that he had excellent pain relief after the injections Patients currently on [place] 7.5/325 and Neurontin 100 mg every 8 hours is getting prescription refills from his primary care Patient denies any side effects of the medication, denies excessive drowsiness or sleepiness, denies suicidal ideation, and reports that the current pain medication is helping to control the pain and improve activity of daily living Patient denies any motor or sensory deficit , patient denies any fever or night sweats, denies any change in the bowel movements or urination Physical Examinations : 1-Constitutional : Cooperative , not in acute distress . 2-HEENT : nech ; supple , no Lymphadenopathy , no Thyromegaly , normal thyroid size . eyes : no ptosis , no icterus, no photophobia . ENT : normal of hearing , normal oropharynx , no Thrush . 3- Respiratory : Chest clear to auscultations Bilaterally , no wheezing , no Rhonchi . 4- Cardiovascular : regular rate and rhythem , S1 , S2 , no S3 , no S4. 5- Gastrointestinal : abdomen soft no tenderness , bowel sounds positive all four quadrents , no organomegally . 6- Genitourinary : Defferred . 7- neurologic: Cranial nerve II to XII intact , no focal neurological deffecit . 8- Psychatric: alert , oriented X 3 , appropriate affect , intact judgment and insight . 9- Lymphatic : no Lymphadenopathy . 10- Musculoskeltal : exams of the cervical spine = motor strength normal bilateral upper extremities Multiple trigger points identified in the cervical area trapezius muscles and rhomboid muscles . exams of the Lumber spine =motor strength lower extremities ,thigh and legs .4/5 deep tendon reflexes : normal Knee Jerk , normal ankle Jerk . lumber facet Loading Test positive strait leg raising test positive at 30 degree , RT ,LT , Fabere test positive RT and positive LT . Range of motion: Range of motion in flexion of the lumbar spine 30 degrees Range of motion range of motion of extension of the lumbar spine 10 Assessment and plan = Chronic low back pain secondary to lumbar degenerative disc disease , Patient could benefit from repeat caudal epidural steroid injection PQRS Measure Charge Sheet Measure #130: Documentation of Current Meds in Medical Chart: Patient's medications documented in chart Measure #226: Tobacco Use: Screen & Cessation Intervention: Pt not a tobacco user Measure #111: Pneumonia Vaccination: Pneumococcal vaccine administered or previously received Measure #47: Advance Care Plan: Advance care planning discussed & documented, pt chose/unable to give Measure #412: Opioid Treatment Agreement: No documentation of signed opioid treatment agreement Measure #408: Opioid Therapy Follow-up Evaluation: Patient had NO f/u eval minimum every 3 months during opioid therapy Measure #317: Preventitive Care & Scrn High Bld Press & F/U: Pre-hypertensive or hypertensive BP documented, pt will f/u with PCP Measure #128: Body Mass Index (BMI) Screening & Follow-up: BMI documented ABOVE normal parameters - f/u documented Measure #131: Pain Assessment & Follow-up: Pain positive & plan documented, Follow-up scheduled Measure #431: Unhealthy Alcohol Use Preventative Care & Scrn: Patient not identified as an unhealthy alcohol user PQRS Narrative: Objective - Vital Signs Vital signs: Vital Signs Temp Pulse 92 02/01/18 13:36 Resp 16 02/01/18 13:36 BP Pulse Ox 92 L 02/01/18 13:36
== END | disposition home or self-care (01) ==
LOC: PNWHC3 13:13
PROVIDERS: ATTEND Specialist
DX: G89.29 Other chronic pain (principal); M54.5 Low back pain; M51.36 Other intervertebral disc degeneration, lumbar region; M79.18 Myalgia, other site; Z98.890 Other specified postprocedural states; Z79.891 Long term (current) use of opiate analgesic; Z79.899 Other long term (current) drug therapy
CPT/HCPCS: 99211

== ENCOUNTER 2018-02-21 08:38 | Day surgery (SDC) | payer MEDICARE, BC ==
[2018-02-20 09:00] VITALS: BMI 26.4
[2018-02-21] MEDS ORDERED: LACTATED RINGERS 1,000 ML IV ONE (09:35)
[2018-02-21] MEDS ORDERED: LIDOCAINE 1% 20 ML VIAL (10MG/ML) FOR IV START INTRADERMA ONE (09:35)
[2018-02-21 09:46] VITALS: TEMP 97.5
--- NOTE | 2018-02-21 11:00 | P.PCN ---
Date of Procedure: 02/21/18 Procedure(s) Performed: PREOPERATIVE DIAGNOSIS: Lumbar degenerative disc disease POSTOPERATIVE DIAGNOSIS: Lumbar degenerative disc disease PROCEDURE: 1. Caudal epidural steroid injection under fluoroscopic guidance. 2. Caudal epidurogra ANESTHESIA: Local with 1% lidocaine; 5ml for subcutaneous infiltrations and IV versed 1 mg ,and fentanyl 50 mcg EBL: None. PROCEDURE INDICATION: The patient with neuropathic pain radiating distally returns for caudal epidural steroid injection. PROCEDURE DESCRIPTION: The patient was seen and identified in the preoperative area. Risks, benefits, complications, and alternatives were discussed with the patient. The patient agreed to proceed with the procedure and signed the consent. IV was started, and vital signs were stable. Patient was taken to the OR and time out was completed. The patient was placed in the prone position on procedure table and a pillow was placed under the abdomen to reduce lumbar lordosis. The lumbosacral area was prepped and draped in the usual sterile fashion. Critical pause was taken. Vital signs were closely monitored during the procedure. Using lateral fluoroscopy the anterior-posterior plates of the sacrum were identified and the skin and deeper tissues corresponding into sacrococcygeal ligament were anesthetized using approximately 3 mL of 1% lidocaine. Then under fluoroscopy, a 3-1/2-inch 20-gauge Tuohy epidural needle was guided through the sacrococcygeal ligament, and into the epidural space. After negative aspiration , a 2 mL of omnipaque-180 contrast dye was injected with excellent epidurogram. Again after negative aspiration for CSF, blood, and with no paresthesias, Depo-Medrol 40mg, 2ml of 1% preservative free Lidocaine with 6 ml of preservative free normal saline(total of 10ml)solution was injected with washout of epidurogram. Needle was withdrawn intact. Skin was cleansed, and bandage was applied. COMPLICATIONS: None DISPOSITION / PLANS: The patient was placed in a supine position and transferred to the recovery area in a stable condition for observation and was discharged from the recovery room after meeting discharge criteria. Home discharge instructions given to the patient by the staff. The patient was reexamined prior to discharge. The patient will schedule a follow up in the clinic in 2-4 weeks.
[2018-02-21 11:15] VITALS: RESP 16
--- NOTE | 2018-02-21 11:20 | FL ---
EXAMINATION TYPE: FL guided pain mgmt statistic DATE OF EXAM: 02/21/2018 HISTORY: Pain CAUDAL EPI. 4 SEC FL TIME.
[2018-02-21 11:21] VITALS: BP 153/75; PULSE 64
[2018-02-21] MEDS ORDERED: IV FLUID CONTINUATION 500 ML IV ONE (11:40)
== END 2018-02-21 11:41 | disposition home or self-care (01) ==
LOC: ORPAIN 08:38
PROVIDERS: ATTEND Specialist
DX: M51.36 Other intervertebral disc degeneration, lumbar region (principal)
CPT/HCPCS: 62323; J2250; J3010; 99152

== ENCOUNTER → 2018-04-25 | Outpatient (CLI) | payer MEDICARE, BC ==
[2018-04-25 11:51] VITALS: BP 145/67; PULSE 51; RESP 18
--- NOTE | 2018-04-26 05:53 | P.PN ---
Subjective Progress Note Date: 04/25/18 This is follow-up visit for this patient with a history of severe and chronic low back pain secondary to lumbar degenerative disc diseases , and myofascial pain syndrome and cervical, We have done interventional pain procedures, caudal epidural steroid injections and trigger point injections in the cervical area ,and typically the pain relief lasts for few months, Patient report currently he had good results after each injection but the pain relief lasted only for short-term, we will then caudal epidural steroid injection last months patient had, in early for few weeks, Patients currently on [place] 7.5/325, air and twice today, Neurontin 100 mg every 8 hours, and is getting prescription refills from his primary care Patient denies any side effects of the medication, denies excessive drowsiness or sleepiness, denies suicidal ideation, and reports that the current pain medication is helping to control the pain and improve activity of daily living Patient denies any motor or sensory deficit , patient denies any fever or night sweats, denies any change in the bowel movements or urination Physical Examinations : 1-Constitutional : Cooperative , not in acute distress . 2-HEENT : nech ; supple , no Lymphadenopathy , no Thyromegaly , normal thyroid size . eyes : no ptosis , no icterus, no photophobia . ENT : normal of hearing , normal oropharynx , no Thrush . 3- Respiratory : Chest clear to auscultations Bilaterally , no wheezing , no Rhonchi . 4- Cardiovascular : regular rate and rhythem , S1 , S2 , no S3 , no S4. 5- Gastrointestinal : abdomen soft no tenderness , bowel sounds positive all four quadrents , no organomegally . 6- Genitourinary : Defferred . 7- neurologic: Cranial nerve II to XII intact , no focal neurological deffecit . 8- Psychatric: alert , oriented X 3 , appropriate affect , intact judgment and insight . 9- Lymphatic : no Lymphadenopathy . 10- Musculoskeltal : exams of the cervical spine = motor strength normal bilateral upper extremities Multiple trigger points identified in the cervical area trapezius muscles and rhomboid muscles . exams of the Lumber spine =motor strength lower extremities ,thigh and legs .4/5 deep tendon reflexes : normal Knee Jerk , normal ankle Jerk . lumber facet Loading Test positive strait leg raising test positive at 30 degree , RT ,LT , Fabere test positive RT and positive LT . Range of motion: Range of motion in flexion of the lumbar spine 30 degrees Range of motion range of motion of extension of the lumbar spine 10 Assessment and plan = Chronic low back pain secondary to lumbar degenerative disc disease , myofascial pain syndrome and cervical area Patient could benefit from a repeat caudal epidural steroid injections and trigger point injections cervical area, Patient reported that he had only short-term benefit after each injection, and clinically patient had facetogenic component of back pain, we will order MRI of the lumbar spine Without contrast. Patient will continue to get his prescription refills from his primary care PQRS Measure Charge Sheet Measure #130: Documentation of Current Meds in Medical Chart: Patient's medications documented in chart Measure #226: Tobacco Use: Screen & Cessation Intervention: Pt not a tobacco user Measure #111: Pneumonia Vaccination: Pneumococcal vaccine administered or previously received Measure #47: Advance Care Plan: Advance care planning discussed & documented, pt chose/unable to give Measure #412: Opioid Treatment Agreement: No documentation of signed opioid treatment agreement Measure #408: Opioid Therapy Follow-up Evaluation: Patient had NO f/u eval minimum every 3 months during opioid therapy Measure #317: Preventitive Care & Scrn High Bld Press & F/U: Pre-hypertensive or hypertensive BP documented, pt will f/u with PCP Measure #128: Body Mass Index (BMI) Screening & Follow-up: BMI documented ABOVE normal parameters - f/u documented Measure #131: Pain Assessment & Follow-up: Pain positive & plan documented, Follow-up scheduled Measure #431: Unhealthy Alcohol Use Preventative Care & Scrn: Patient not identified as an unhealthy alcohol user PQRS Narrative: - Controlled Substance Measures Is patient prescribed a controlled substance at discharge?: No When asked, does pt state using other controlled substances?: No If prescribed controlled substance>3 days was MAPS reviewed?: No If Rx opioid, was Start Talking consent form obtained?: No If opioid is for acute pain is fill amount 7 days or less?: No Was information provided regarding opioid addiction?: No Objective - Vital Signs Vital signs: Vital Signs Temp Pulse 51 L 04/25/18 11:45 Resp 18 04/25/18 11:45 BP 145/67 04/25/18 11:45 Pulse Ox 96 04/25/18 11:45 Intake & Output 04/25/18 04/25/18 04/26/18 06:59 18:59 06:59 Weight 86.183 kg
== END ==
LOC: PNWHC3 11:07
PROVIDERS: ATTEND Specialist
DX: G89.29 Other chronic pain (principal); M51.36 Other intervertebral disc degeneration, lumbar region; M79.18 Myalgia, other site; M50.30 Other cervical disc degeneration, unspecified cervical region; Z79.891 Long term (current) use of opiate analgesic; Z79.899 Other long term (current) drug therapy
CPT/HCPCS: 99211

== ENCOUNTER → 2018-05-15 | Day surgery (SDC) | payer MEDICARE, BC ==
[2018-05-11 12:14] VITALS: BMI 25.0
[~2018-05-15] MED LIST changes: +IV FLUID CONTINUATION 1,000 ML IV ONE; +LACTATED RINGERS 1,000 ML IV ONE; -LACTATED RINGERS 1,000 ML IV SCH; +LIDOCAINE 1% 20 ML VIAL (10MG/ML) FOR IV START INTRADERMA ONE; +SODIUM CHLORIDE 0.9% 500 ML 500 ML IV SCH
[2018-05-15 10:14] VITALS: RESP 18; TEMP 97.6
--- NOTE | 2018-05-15 11:30 | P.PCN ---
Date of Procedure: 05/15/18 Pathology: none sent Condition: stable Disposition: PACU Description of Procedure: PREOPERATIVE DIAGNOSIS: Lumbar degenerative disc disease, lumbar stenosis and radiculopathy. Myofascial pain in the cervical and upper thoracic area POSTOPERATIVE DIAGNOSIS: Same as above PROCEDURE: 1. Caudal epidural steroid injection under fluoroscopic guidance. 2. Caudal epidurogram. 3. Trigger point injection in the trapezius muscles bilaterally and upper thoracic paravertebral musculature bilaterally and cervical paravertebral musculature bilaterally. ANESTHESIA: Local with 1% lidocaine; EBL: Negligible PROCEDURE INDICATION: The patient with neuropathic pain radiating distally returns for caudal epidural steroid injection. PROCEDURE DESCRIPTION: The patient was seen and identified in the preoperative area. Risks, benefits, complications, and alternatives were discussed with the patient. The patient agreed to proceed with the procedure and signed the consent. IV was started, and vital signs were stable. Patient was taken to the OR and time out was completed. The patient was placed in the prone position on procedure table and a pillow was placed under the abdomen to reduce lumbar lordosis. The lumbosacral area was prepped and draped in the usual sterile fashion. Critical pause was taken. Vital signs were closely monitored during the procedure. Using lateral fluoroscopy the anterior-posterior plates of the sacrum were identified and the skin and deeper tissues corresponding into sacrococcygeal ligament were anesthetized using approximately 3 mL of 1% lidocaine. Then under fluoroscopy, a 3-1/2-inch 20-gauge Tuohy epidural needle/22-guage 3-1/2 -inch spinal needle was guided through the sacrococcygeal ligament, and into the epidural space. After negative aspiration, a 1 mL of omnipaque-300 contrast dye was injected with excellent epidurogram. Again after negative aspiration for CSF , blood, and with no paresthesias, Kenalog 40mg,2ml of 0.5% preservative free Marcaine with 7ml of preservative free normal saline(total of 10ml)solution was injected with washout of epidurogram. Needle was withdrawn intact. Skin was cleansed, and bandage was applied. COMPLICATIONS: None. Then I turned my attention into doing the trigger point injection in the above- mentioned muscles. Skin was prepped with ChloraPrep and then I used 25-gauge 1- 1/2 inch needle to go through the skin and into the trapezius muscles on each side and then the cervical and thoracic paravertebral musculature. I injected 1 mL of Marcaine 0.5% in each muscle. Patient tolerated procedure well. DISPOSITION / PLANS: The patient was placed in a supine position and transferred to the recovery area in a stable condition for observation and was discharged from the recovery room after meeting discharge criteria. Home discharge instructions given to the patient by the staff. The patient was reexamined prior to discharge. The patient will schedule a follow up in the clinic in 2-4 weeks.
[2018-05-15 11:37] VITALS: BP 171/81; PULSE 65
--- NOTE | 2018-05-15 12:44 | FL ---
EXAMINATION TYPE: FL guided pain mgmt statistic DATE OF EXAM: 05/15/2018 CLINICAL HISTORY: Sacral pain. TECHNIQUE: Fluoroscopy. COMPARISON: None. FINDINGS: Fluoroscopic guidance was provided during pain relief procedure performed by Dr. Escudero . A total of 6 seconds of fluoroscopic time was utilized during the procedure and 2 spot images are a cquired. Images acquired shows needle localization at level of sacrum. IMPRESSION: As Above.
== END ==
LOC: ORPAIN 09:17
PROVIDERS: ATTEND Anesthesiology
DX: G89.29 Other chronic pain (principal); M51.16 Intervertebral disc disorders with radiculopathy, lumbar region; M48.061 Spinal stenosis, lumbar region without neurogenic claudication; M79.18 Myalgia, other site; Z79.891 Long term (current) use of opiate analgesic; Z79.899 Other long term (current) drug therapy
CPT/HCPCS: 20553; 62323; J3301; Q9966

== ENCOUNTER → 2018-06-20 | Outpatient (CLI) | payer MEDICARE, BC ==
--- NOTE | 2018-06-20 11:16 | P.PAINPG ---
Subjective Progress Note Date: 06/20/18 Mr. Sky is an 83-year-old gentleman who presents today for follow-up. He is status post caudal epidural steroid injection and reports that this last injection was not helpful at all. His previous injections have been very successful. He reports he continues to have the same back pain across the low back radiating into the right leg into the knee. He reports that his pain is worse with sitting for prolonged periods or standing for prolonged periods is unable to walk for more than about 15 or 20 feet. He reports numbness and tingling in his right leg. He uses pain medications from his primary care physician denies any side effects from those medications. He reports without medications and he would not be able to function throughout the day. His is also with him today and reports that this last injection offered him no relief. There are inquiring about repeating the injection since it was unsuccessful and previous [place] been very successful. Objective - Vital Signs Vital signs: Intake & Output 06/19/18 06/20/18 06/20/18 18:59 06:59 18:59 Weight 87.09 kg - Exam General: Awake and alert oriented 3 no distress, hard of hearing, in a wheelchair Respiratory exam: No audible wheezing no accessory muscle usage Cardiovascular exam: regular rate, palpable bilateral pulses, no lower extremity edema Abdominal exam: No distention nontender to palpation Cervical spine: Normal alignment, Spurling's negative, facet loading negative Lumbar spine: Forward flexed body position, Loss of lumbar lordosis, mild scoliosis , tender to palpation over bilateral paraspinal muscles, facet loading is negative bilaterally. Straight leg raise is positive on the right Sacroiliac joints: Nontender to palpation, RAF is negative Neuro exam: Normal sensation in bilateral upper extremities, deep tendon reflexes are 2+ bilateral upper extremities. Normal sensation in bilateral lower extremities. Deep tendon reflexes are absent in lower extremities Psych exam: Cooperative, appropriate mood Assessment and Plan Assessment: #1 lumbar post laminectomy syndrome #2 lumbar radiculopathy Plan: Patient reports the last epidural for some reason did not help very much and is really interested in doing it again. He's previously had very successful injections in this last one was the only one that was not helpful. I discussed with him potentially repeating it along with the risks and benefits and alternatives to the procedure. He wants to move forward with the procedure was set him up to be as soon as possible. We do not prescribe him any medications. PQRS Measure Charge Sheet Measure #130: Documentation of Current Meds in Medical Chart: Patient's medications documented in chart Measure #226: Tobacco Use: Screen & Cessation Intervention: Pt not a tobacco user Measure #111: Pneumonia Vaccination: Pneumococcal vaccine administered or previously received Measure #47: Advance Care Plan: Advance care planning discussed & documented, pt chose/unable to give Measure #317: Preventitive Care & Scrn High Bld Press & F/U: Normal blood pressure, f/u not required Measure #128: Body Mass Index (BMI) Screening & Follow-up: BMI documented within normal parameters Measure #131: Pain Assessment & Follow-up: Pain positive & plan documented, Follow-up scheduled Measure #431: Unhealthy Alcohol Use Preventative Care & Scrn: Patient not identified as an unhealthy alcohol user PQRS Narrative: Smoking Status Former smoker Narcotic Agreement Date Signed 10/15/13 Hx Alcohol Use (MH) Yes: rare Home Medications: Ambulatory Orders Amiodarone HCl [Pacerone] 200 mg PO QAM 08/02/13 Aspirin 81 mg PO HS 08/02/13 Atorvastatin [Lipitor] 20 mg PO QAM 08/02/13 Furosemide [Lasix] 40 mg PO QAM 08/02/13 Loratadine [Claritin] 10 mg PO DAILY 08/02/13 Potassium Chloride 20 meq PO TID 08/02/13 Diclofenac Sodium Gel [Voltaren Gel] 1 gram TOPICAL BID 04/06/16 Etanercept [Enbrel] 0.98 ml SQ GARAY 04/06/16 Gabapentin 100 mg PO QID 04/06/16 HYDROcodone/APAP 7.5-325MG [[place] 7.5-325] 5 tab PO BID 04/06/16 Metolazone 2.5 mg PO Q3D PRN 04/06/16 levETIRAcetam [Keppra] 500 mg PO Q12HR 12/21/17 Albuterol Sulfate [Proventil Hfa] 2 inhaler INHALATION Q4-6H PRN 02/01/18 Atenolol [Tenormin] 50 mg PO DAILY 02/01/18 Clobetasol Propionate/Emoll [Clobetasol Emulsion 0.05% Foam] 1 foam TOPICAL JAMI LY 02/01/18 Ipratropium/Albuterol Sulfate [Combivent Respimat Inhaler] 1 puff INHALATION QID PRN 02/01/18 Nystatin 100,000Unit/gm Cream [Mycostatin Cream] 1 cream TOPICAL DIRECTED 02/01/18 busPIRone HCL 10 mg PO DAILY PRN 02/01/18 Furosemide [Lasix] 20 mg PO 1400 05/10/18 Controlled Substance Measures - Controlled Substance Measures Is patient prescribed a controlled substance at discharge?: No
[2018-06-20 12:29] VITALS: BP 178/74; PULSE 48; RESP 18
== END | disposition home or self-care (01) ==
LOC: PNWHC3 10:19
PROVIDERS: ATTEND Hospitalist
DX: M96.1 Postlaminectomy syndrome, not elsewhere classified (principal); M54.16 Radiculopathy, lumbar region; Z87.891 Personal history of nicotine dependence
CPT/HCPCS: 99211

== ENCOUNTER 2018-07-04 09:00 | Day surgery (SDC) | payer MEDICARE, BC ==
[2018-06-29 14:17] VITALS: BMI 25.7
[~2018-07-04 09:00] MED LIST changes: -IV FLUID CONTINUATION 1,000 ML IV ONE; -LACTATED RINGERS 1,000 ML IV ONE; +LACTATED RINGERS 1,000 ML IV SCH; -LIDOCAINE 1% 20 ML VIAL (10MG/ML) FOR IV START INTRADERMA ONE; -SODIUM CHLORIDE 0.9% 500 ML 500 ML IV SCH
[2018-07-04 10:12] VITALS: TEMP 98
--- NOTE | 2018-07-04 11:16 | P.PCN ---
Date of Procedure: 07/04/18 Procedure(s) Performed: PREOPERATIVE DIAGNOSIS:1- Lumbar degenerative disc disease. 2-lumbar radi culopathy. POSTOPERATIVE DIAGNOSIS: Same as preoperative diagnoses PROCEDURE: 1. Caudal epidural steroid injection under fluoroscopic guidance. 2. Caudal epidurogra ANESTHESIA: moderate sedation with fentanyl 200 mcg EBL: None. PROCEDURE INDICATION: The patient with neuropathic pain radiating distally returns for caudal epidural steroid injection. PROCEDURE DESCRIPTION: The patient was seen and identified in the preoperative area. Risks, benefits, complications, and alternatives were discussed with the patient. The patient agreed to proceed with the procedure and signed the cons ent. IV was started, and vital signs were stable. Patient was taken to the OR and time out was completed. The patient was placed in the prone position on procedure table and a pillow was placed under the abdomen to reduce lumbar lordosis. The lumbosacral area was prepped and draped in the usual sterile fashion. Critical pause was taken. Vital signs were closely monitored during the procedure. Using lateral fluoroscopy the anterior-posterior plates of the sacrum were identified and the skin and deeper tissues corresponding into sacrococcygeal ligament were anesthetized using approximately 3 mL of 1% lidocaine. Then under fluoroscopy, a 3-1/2-inch 20-gauge Tuohy epidural needle was guided through the sacrococcygeal ligament, and into the epidural space. After negative aspiration, a 2 mL of omnipaque-180 contrast dye was injected with excellent epidurogram. Again after negative aspiration for CSF, blood, and with no paresthesias, depo- medrol 40mg,mixed with 6 ml of preservative free normal saline , notesolution was injected with washout of epidurogram. Needle was withdrawn intact. Skin was cleansed, and bandage was applied. COMPLICATIONS: None DISPOSITION / PLANS: The patient was placed in a supine position and transferred to the recovery area in a stable condition for observation and was discharged from the recovery room after meeting discharge criteria. Home discharge instructions given to the patient by the staff. The patient was reexamined prior to discharge. The patient will schedule a follow up in the clinic in 2-4 weeks
[2018-07-04 11:36] VITALS: BP 164/83; PULSE 67; RESP 16
[2018-07-04] MEDS ORDERED: IV FLUID CONTINUATION 1,000 ML IV ONE (11:39)
--- NOTE | 2018-07-04 13:06 | FL ---
EXAMINATION TYPE: FL guidance operating room DATE OF EXAM: 07/04/2018 CLINICAL HISTORY: Back and hip pain. TECHNIQUE: Fluoroscopy. COMPARISON: None. FINDINGS: Fluoroscopic guidance was provided during pain relief procedure performed by Dr. Queen . A total of 16 seconds of fluoroscopic time was utilized during the procedure and two spot images a re acquired. Images acquired shows needle localization near the sacrum. IMPRESSION: As Above.
== END 2018-07-04 11:57 | disposition home or self-care (01) ==
LOC: ORPAIN 09:00
PROVIDERS: ATTEND Specialist
DX: M51.16 Intervertebral disc disorders with radiculopathy, lumbar region (principal); I25.10 Atherosclerotic heart disease of native coronary artery without angina pectoris; I10 Essential (primary) hypertension; R56.9 Unspecified convulsions; H91.8X9 Other specified hearing loss, unspecified ear; Z88.8 Allergy status to other drugs, medicaments and biological substances
CPT/HCPCS: 62323; J2250; J1030; J3010; Q9966; 99152

== ENCOUNTER 2018-08-18 15:34 | Inpatient (IN) | payer MEDICARE, BC ==
[2018-08-18] MEDS ORDERED: DIPH,PERTUS(ACELL)TETVAC-LF 0.5 ML VIAL IM ONE (15:43)
[2018-08-18 16:00] LABS: HCT 34.9 % (39.0-53.0); HGB 11.3 gm/dL (13.0-17.5); MCH 35.5 pg (25.0-35.0); MCHC 32.5 g/dL (31.0-37.0); MCV 109.4 fL (80.0-100.0); Macrocytosis Marked; Platelet Count 141 k/uL (150-450); RBC 3.19 m/uL (4.30-5.90); WBC 4.3 k/uL (3.8-10.6)
--- NOTE | 2018-08-18 16:04 | ED ---
General Adult HPI - General Chief complaint: Fall Stated complaint: fall Time Seen by Provider: 08/18/18 15:37 Source: patient, RN notes reviewed Mode of arrival: EMS Limitations: no limitations - History of Present Illness Initial comments: Patient is a pleasant 83-year-old male presenting to the emergency department following a fall. Patient was walking inside when the door struck him. Patient was knocked down. Patient complains of significant left wrist discomfort. EMS was called. Patient only complains of discomfort at the left wrist. Patient denies any other area of injury. No head injury or loss of consciousness. No neck or back pain. No chest pain or dyspnea. No abdominal pain. Patient did have some difficulty with walking following the fall. Patient states his walking problems are chronic for him. Patient does admit that he does have some leg edema however states this is also chronic for him. No dyspnea. - Related Data Home Medications Medication Instructions Recorded Confirmed Amiodarone HCl [Pacerone] 200 mg PO QAM 08/02/13 08/18/18 Aspirin 81 mg PO HS 08/02/13 08/18/18 Atorvastatin [Lipitor] 20 mg PO QAM 08/02/13 08/18/18 Furosemide [Lasix] 40 mg PO QAM 08/02/13 08/18/18 Potassium Chloride 20 meq PO TID 08/02/13 08/18/18 Diclofenac Sodium Gel [Voltaren 1 gram TOPICAL BID 04/06/16 08/18/18 Gel] Etanercept [Enbrel] 0.98 ml SQ GARAY 04/06/16 08/18/18 Gabapentin 100 mg PO QID 04/06/16 08/18/18 levETIRAcetam [Keppra] 500 mg PO Q12HR 12/21/17 08/18/18 Albuterol Sulfate [Proventil Hfa] 2 inhaler INHALATION PRN 02/01/18 07/04/18 Furosemide [Lasix] 20 mg PO 1400 05/10/18 08/18/18 HYDROcodone/APAP 7.5-325MG [[place] 1 tab PO Q4-6H 08/18/18 08/18/18 7.5-325] Lisinopril [Zestril] 5 mg PO DAILY 08/18/18 08/18/18 Metolazone [Zaroxolyn] 2.5 mg PO Q48H 08/18/18 08/18/18 clonazePAM [KlonoPIN] 0.5 mg PO HS 08/18/18 08/18/18 Allergies Allergy/AdvReac Type Severity Reaction Status Date / Time allopurinol AdvReac Hallucinati Verified 08/18/18 16:50 ons famotidine AdvReac Hallucinati Verified 08/18/18 16:50 ons zolpidem [From Ambien] AdvReac Confusion Verified 08/18/18 16:50 Review of Systems ROS Statement: Those systems with pertinent positive or pertinent negative responses have been documented in the HPI. ROS Other: All systems not noted in ROS Statement are negative. Constitutional: Denies: fever Eyes: Denies: eye pain ENT: Denies: ear pain Respiratory: Denies: dyspnea Cardiovascular: Denies: chest pain Endocrine: Denies: fatigue Gastrointestinal: Denies: abdominal pain, nausea Genitourinary: Denies: dysuria Musculoskeletal: Denies: back pain Skin: Denies: rash Neurological: Denies: headache, weakness Past Medical History Past Medical History: Coronary Artery Disease (CAD), Cancer, Heart Failure, CVA/TIA, Dementia, GERD/Reflux, Hyperlipidemia, Hypertension, Myocardial Infarction ([place]), Musculoskeletal Disorder, Osteoarthritis (OA), Prostate Disorder, Seizure Disorder Additional Past Medical History / Comment(s): HX of URINARY CALCULUS, PERTHES DX, HEMORRAGHIC STROKE,2014 PROSTATE CA, CHF Last Myocardial Infarction Date:: 2009 History of Any Multi-Drug Resistant Organisms: None Reported Past Surgical History: Coronary Bypass/CABG, Heart Catheterization With Stent, Joint Replacement, Prostate Surgery Additional Past Surgical History / Comment(s): JAW SX, LEFT HIP REPLACED X3, RIGHT KNEE REPLACED X2, LEFT SHOULDER REPLACED, CABG X3, CATARACTSX LEFT EYE; Pain Procedures Past Anesthesia/Blood Transfusion Reactions: Postoperative Nausea & Vomiting (PONV) Additional Past Anesthesia/Blood Transfusion Reaction / Comment(s): IN PAST HAS HARD TIME WAKING UP Date of Last Stent Placement:: UNKNOWN Past Psychological History: No Psychological Hx Reported Smoking Status: Former smoker Past Alcohol Use History: None Reported Past Drug Use History: None Reported - Past Family History Mother Family Medical History: No Reported History General Exam Limitations: no limitations General appearance: alert, in no apparent distress Head exam: Present: atraumatic, normocephalic Eye exam: Present: normal appearance, PERRL, EOMI ENT exam: Present: normal oropharynx Neck exam: Present: normal inspection Respiratory exam: Present: normal lung sounds bilaterally Cardiovascular Exam: Present: regular rate, normal rhythm GI/Abdominal exam: Present: soft. Absent: tenderness Extremities exam: Present: full ROM, other (Arm abrasions. Left wrist with swelling and tenderness distally the extremity is neurovascular intact.) Back exam: Present: normal inspection. Absent: tenderness, vertebral tenderness Neurological exam: Present: alert Psychiatric exam: Present: normal affect, normal mood Skin exam: Present: normal color Course Vital Signs 08/18/18 08/18/18 08/18/18 15:40 15:52 16:00 Temperature 97.5 F L Pulse Rate 53 L 52 L Pulse Rate [ 53 L [employer] ] Respiratory 18 12 Rate Blood Pressure 139/118 129/79 O2 Sat by Pulse 95 94 L Oximetry 08/18/18 08/18/18 16:20 16:40 Temperature Pulse Rate 56 L 57 L Pulse Rate [ [employer] ] Respiratory 12 14 Rate Blood Pressure 135/69 137/76 O2 Sat by Pulse 92 L 87 L Oximetry EKG Findings - EKG Comments: EKG Findings:: EKG shows wide complex rhythm with a rate of 52. QRS 192. QT 550. QTC 511. Left axis. Left bundle branch block. No acute ST change. Medical Decision Making - Medical Decision Making Patient reexamined. Patient and family updated. states patient has been having difficult time getting around recently, especially the past few days. She states he has been short of breath and has been retaining fluid. Chest x- ray and physical exam is concerning for CHF. Case was discussed with Dr. Mota, who will admit covering for Dr. Crisostomo. Patient has been cleared from a trauma standpoint for admission. Patient is being admitted medically. Patient is now receptive to receiving medication for his wrist. - Lab Data Result diagrams: 08/18/18 15:51 08/18/18 15:51 Lab Results 08/18/18 08/18/18 08/18/18 Range/Units 15:51 15:51 15:51 WBC 4.3 (3.8-10.6) k/uL RBC 3.19 L (4.30-5.90) m/uL Hgb 11.3 L (13.0-17.5) gm/dL Hct 34.9 L (39.0-53.0) % MCV 109.4 H (80.0-100.0) fL MCH 35.5 H (25.0-35.0) pg MCHC 32.5 (31.0-37.0) g/dL RDW 15.0 (11.5-15.5) % Plt Count 141 L (150-450) k/uL Neutrophils % (Manual) 38 % Band Neutrophils % 1 % Lymphocytes % (Manual) 50 % Monocytes % (Manual) 9 % Eosinophils % (Manual) 2 % Neutrophils # (Manual) 1.60 (1.3-7.7) k/uL Lymphocytes # (Manual) 2.15 (1.0-4.8) k/uL Monocytes # (Manual) 0.39 (0-1.0) k/uL Eosinophils # (Manual) 0.09 (0-0.7) k/uL Nucleated RBCs 0 (0-0) /100 WBC Manual Slide Review Performed Poikilocytosis (manual Present Macrocytosis Marked A PT 10.2 (9.0-12.0) sec INR 0.9 (<1.2) APTT 24.2 (22.0-30.0) sec Sodium 142 (137-145) mmol/L Potassium 3.8 (3.5-5.1) mmol/L Chloride 103 (98-107) mmol/L Carbon Dioxide 34 H (22-30) mmol/L Anion Gap 5 mmol/L BUN 33 H (9-20) mg/dL Creatinine 1.91 H (0.66-1.25) mg/dL Est GFR (CKD-EPI)AfAm 37 (>60 ml/min/1.73 sqM) Est GFR (CKD-EPI)NonAf 32 (>60 ml/min/1.73 sqM) Glucose 88 (74-99) mg/dL Calcium 8.8 (8.4-10.2) mg/dL Total Bilirubin 0.6 (0.2-1.3) mg/dL AST 21 (17-59) U/L ALT 17 L (21-72) U/L Alkaline Phosphatase 88 (38-126) U/L Total Protein 6.0 L (6.3-8.2) g/dL Albumin 3.6 (3.5-5.0) g/dL - Radiology Data Radiology results: image reviewed (Pelvis x-ray shows no acute process. Chest x-ray shows some interstitial markings that are increased, possible CHF. Left wrist x-ray shows possible nondisplaced radial styloid process.) Disposition Clinical Impression: Fall, CHF (congestive heart failure), Distal radius fracture, left Disposition: ADMITTED IP TO THIS HOSP Is patient prescribed a controlled substance at d/c from ED?: No Referrals: Germain Lee DO [Primary Care Provider] - 1-2 days Decision Time: 17:18
[2018-08-18 16:13] LABS: Albumin 3.6 g/dL (3.5-5.0); Calcium 8.8 mg/dL (8.4-10.2); Potassium 3.8 mmol/L (3.5-5.1); Total Bilirubin 0.6 mg/dL (0.2-1.3)
[2018-08-18 16:16] LABS: INR 0.9 (<1.2); Partial Thromboplastin Time 24.2 sec (22.0-30.0); Prothrombin Time 10.2 sec (9.0-12.0)
--- NOTE | 2018-08-18 16:29 | XR ---
EXAMINATION TYPE: XR pelvis AP view DATE OF EXAM: 08/18/2018 COMPARISON: 10/08/2016 HISTORY: Trauma and pain TECHNIQUE: Single view FINDINGS: The bones appear osteopenic. There is left hip prosthesis. There is mild protrusio of the p rosthetic acetabulum. I see no pelvic fracture. Sacroiliac joints appear intact. There is lumbar dext roscoliosis. IMPRESSION: Mild protrusio of the prosthetic left acetabulum unchanged. No acute bony abnormality.
--- NOTE | 2018-08-18 16:30 | XR ---
EXAMINATION TYPE: XR chest 1V portable DATE OF EXAM: 08/18/2018 COMPARISON: NONE HISTORY: Chest pain. Trauma TECHNIQUE: Single frontal view of the chest is obtained. FINDINGS: Heart is enlarged. There is pulmonary vascular congestion. There are sternal wires. There is right shoulder prosthesis. There are chest leads. IMPRESSION: There is some congestive heart failure. No fracture seen
[2018-08-18 16:33] LABS: Band Neutrophils % 1 %; Eosinophils # (M) 0.09 k/uL (0-0.7); Lymphocytes # (M) 2.15 k/uL (1.0-4.8); Monocytes # (M) 0.39 k/uL (0-1.0); Neutrophils % (M) 38 %; Nucleated Red Blood Cells 0 /100 WBC (0-0); Poikilocytosis (M) Present; Total Cells Counted 100
--- NOTE | 2018-08-18 16:33 | XR ---
EXAMINATION TYPE: XR wrist complete LT DATE OF EXAM: 08/18/2018 COMPARISON: NONE HISTORY: Pain TECHNIQUE: 4 views FINDINGS: There is vascular calcification. There is narrowing of the radiocarpal joint space. There i s osteopenia. There is some widening of the scapholunate joint space. On one view there appears to be a small step deformity of the articular surface of the radial styloid process. There is narrowing an d spurring at the first carpometacarpal joint. IMPRESSION: Osteoarthritic changes. Possible nondisplaced fracture of the radial styloid process.
[2018-08-18] MEDS ORDERED: HYDROcodone/APAP 7.5-325MG 1 EACH TAB PO ONE (17:19)
[2018-08-18 17:53] LABS: Creatine Kinase MB 0.5 ng/mL (0.0-2.4)
[2018-08-18 18:01] LABS: Troponin I 0.049 ng/mL (0.000-0.034)
[2018-08-18] MEDS ORDERED: MORPHINE SULFATE 4 MG/ML SYRINGE IVP STA (19:58)
[2018-08-18] MEDS: FUROSEMIDE 10 MG/ML 4 ML VIAL IV SCH (20:11)
[2018-08-18] MEDS: GABAPENTIN 100 MG CAP PO SCH ×2 (20:11→21:32)
[2018-08-18 21:10] VITALS: BMI 27.1
[2018-08-18] MEDS: NITROGLYCERIN OINT 1 INCH/GM PACKET TOPICAL SCH ×2 (21:21→21:33)
[2018-08-18] MEDS: clonazePAM 0.5 MG TAB PO SCH (21:32)
[2018-08-18] MEDS: DICLOFENAC SODIUM GEL 100 GM TUBE TOPICAL SCH (21:32)
[2018-08-18] MEDS: levETIRAcetam 500 MG TAB PO SCH (21:33)
[2018-08-18] MEDS: POTASSIUM CHLORIDE ER 20 MEQ TAB.ER PO SCH (21:33)
[2018-08-18 22:53] LABS: Creatine Kinase MB 0.6 ng/mL (0.0-2.4)
[2018-08-18 22:54] LABS: Troponin I 0.058 ng/mL (0.000-0.034)
[2018-08-19] MEDS: HYDROcodone/APAP 7.5-325MG 1 EACH TAB PO PRN ×3 (00:03→16:19)
[2018-08-19] MEDS: FUROSEMIDE 10 MG/ML 4 ML VIAL IV SCH ×3 (03:16→16:50)
[2018-08-19 06:41] LABS: Creatine Kinase MB 0.6 ng/mL (0.0-2.4)
[2018-08-19 07:17] LABS: Troponin I 0.059 ng/mL (0.000-0.034)
[2018-08-19] MEDS: AMIODARONE 200 MG TAB PO SCH (08:38)
[2018-08-19] MEDS: DICLOFENAC SODIUM GEL 100 GM TUBE TOPICAL SCH ×2 (08:41→20:00)
[2018-08-19] MEDS: ATORVASTATIN 20 MG TAB PO SCH (08:41)
[2018-08-19] MEDS: levETIRAcetam 500 MG TAB PO SCH ×2 (08:43→19:56)
[2018-08-19] MEDS: GABAPENTIN 100 MG CAP PO SCH ×4 (08:43→19:57)
[2018-08-19] MEDS: LISINOPRIL 5 MG TAB PO SCH (08:44)
[2018-08-19] MEDS: NITROGLYCERIN OINT 1 INCH/GM PACKET TOPICAL SCH (08:44)
[2018-08-19] MEDS: POTASSIUM CHLORIDE ER 20 MEQ TAB.ER PO SCH ×3 (08:44→19:57)
[2018-08-19] MEDS ORDERED: METOLAZONE 2.5 MG TAB PO SCH (09:00)
--- NOTE | 2018-08-19 12:08 | P.CNOR ---
History of Present Illness - [facility] Consult date: 08/19/18 Consult reason: fracture History of present illness: The patient is a very pleasant 83-year-old male who was admitted to internal medicine following a fall. At the time of my evaluation he is complaining of isolated left wrist pain. The patient's is at bedside and states that he has had problems with arthritis throughout his body for many years. In addition to his left wrist pain he also has low back pain. He is a previously established patient of Dr. Dominguez who has performed a right total shoulder and left hip replacement. These seem to be doing well. Past Medical History Past Medical History: Coronary Artery Disease (CAD), Cancer, Heart Failure, CVA/TIA, Dementia, GERD/Reflux, Hyperlipidemia, Hypertension, Myocardial Infarction ([place]), Musculoskeletal Disorder, Osteoarthritis (OA), Prostate Disorder, Seizure Disorder Additional Past Medical History / Comment(s): HX of URINARY CALCULUS, PERTHES DX, HEMORRAGHIC STROKE,2014 PROSTATE CA, CHF Last Myocardial Infarction Date:: 2009 History of Any Multi-Drug Resistant Organisms: None Reported Past Surgical History: Coronary Bypass/CABG, Heart Catheterization With Stent, Joint Replacement, Prostate Surgery Additional Past Surgical History / Comment(s): JAW SX, LEFT HIP REPLACED X3, RIGHT KNEE REPLACED X2, LEFT SHOULDER REPLACED, CABG X3, CATARACTSX LEFT EYE; Pain Procedures Past Anesthesia/Blood Transfusion Reactions: Postoperative Nausea & Vomiting (PONV) Additional Past Anesthesia/Blood Transfusion Reaction / Comm: IN PAST HAS HARD TIME WAKING UP Date of Last Stent Placement:: UNKNOWN Past Psychological History: No Psychological Hx Reported Smoking Status: Former smoker Past Alcohol Use History: None Reported Additional Past Alcohol Use History / Comment(s): started smoking at age 16 or 17, quit smoking age 35 smoked 1/2ppd Past Drug Use History: None Reported - Past Family History Mother Family Medical History: No Reported History Medications and Allergies Home Medications Medication Instructions Recorded Confirmed Type Amiodarone HCl [Pacerone] 200 mg PO QAM 08/02/13 08/18/18 History Aspirin 81 mg PO HS 08/02/13 08/18/18 History Atorvastatin [Lipitor] 20 mg PO QAM 08/02/13 08/18/18 History Furosemide [Lasix] 40 mg PO QAM 08/02/13 08/18/18 History Potassium Chloride 20 meq PO TID 08/02/13 08/18/18 History Diclofenac Sodium Gel [Voltaren 1 gram TOPICAL BID 04/06/16 08/18/18 History Gel] Etanercept [Enbrel] 0.98 ml SQ GARAY 04/06/16 08/18/18 History Gabapentin 100 mg PO QID 04/06/16 08/18/18 History levETIRAcetam [Keppra] 500 mg PO Q12HR 12/21/17 08/18/18 History Albuterol Sulfate [Proventil Hfa] 2 inhaler INHALATION PRN 02/01/18 07/04/18 History Furosemide [Lasix] 20 mg PO 1400 05/10/18 08/18/18 History HYDROcodone/APAP 7.5-325MG [[place] 1 tab PO Q4-6H 08/18/18 08/18/18 History 7.5-325] Lisinopril [Zestril] 5 mg PO DAILY 08/18/18 08/18/18 History Metolazone [Zaroxolyn] 2.5 mg PO Q48H 08/18/18 08/18/18 History clonazePAM [KlonoPIN] 0.5 mg PO HS 08/18/18 08/18/18 History Allergies Allergy/AdvReac Type Severity Reaction Status Date / Time allopurinol AdvReac Hallucinati Verified 08/18/18 16:50 ons famotidine AdvReac Hallucinati Verified 08/18/18 16:50 ons zolpidem [From Ambien] AdvReac Confusion Verified 08/18/18 16:50 Physical Examination On exam the patient is resting in his bed. He appears in mild distress sec ondary to pain. His head is normocephalic and atraumatic. He demonstrates nonlabored breathing. On inspection of the right upper extremity there is a well-healed incision over the anterior aspect of the shoulder. There is no tenderness throughout the lower extremities. A focused examination of the left wrist was conducted. On inspection there is diffuse swelling and ecchymosis. There are no open wounds or fracture blisters. There is exquisite tenderness diffusely over the radial border of the wrist and dorsum of the hand. Motor and sensory function appear intact. There is no pain with passive range of motion of the fingers. Results X-rays of the left wrist show a nondisplaced radial styloid fracture and diffuse degenerative changes. X-ray of the pelvis shows a stable left hip replacement and no acute fractures. - Labs Labs: Abnormal Lab Results - Last 24 Hours (Table) 08/18/18 08/18/18 08/18/18 Range/Units 15:51 15:51 15:51 RBC 3.19 L (4.30-5.90) m/uL Hgb 11.3 L (13.0-17.5) gm/dL Hct 34.9 L (39.0-53.0) % MCV 109.4 H (80.0-100.0) fL MCH 35.5 H (25.0-35.0) pg Plt Count 141 L (150-450) k/uL Macrocytosis Marked A Carbon Dioxide 34 H (22-30) mmol/L BUN 33 H (9-20) mg/dL Creatinine 1.91 H (0.66-1.25) mg/dL ALT 17 L (21-72) U/L Total Creatine Kinase 44 L (55-170) U/L Troponin I 0.049 H* (0.000-0.034) ng/mL Total Protein 6.0 L (6.3-8.2) g/dL 08/18/18 08/19/18 Range/Units 21:50 05:33 RBC (4.30-5.90) m/uL Hgb (13.0-17.5) gm/dL Hct (39.0-53.0) % MCV (80.0-100.0) fL MCH (25.0-35.0) pg Plt Count (150-450) k/uL Macrocytosis Carbon Dioxide (22-30) mmol/L BUN (9-20) mg/dL Creatinine (0.66-1.25) mg/dL ALT (21-72) U/L Total Creatine Kinase (55-170) U/L Troponin I 0.058 H* 0.059 H* (0.000-0.034) ng/mL Total Protein (6.3-8.2) g/dL H & H 08/18/18 Range/Units 15:51 Hgb 11.3 L (13.0-17.5) gm/dL Hct 34.9 L (39.0-53.0) % Coagulation 08/18/18 Range/Units 15:51 INR 0.9 (<1.2) Result Diagrams: 08/18/18 15:51 08/18/18 15:51 Assessment and Plan (1) Distal radius fracture, left Current Visit: Yes Status: Acute Code(s): S52.502A - UNSP FRACTURE OF THE LOWER END OF LEFT RADIUS, INIT SNOMED Code(s): 938575835 Plan: The patient's left wrist x-rays show a minimally displaced radial styloid fracture. I recommended nonoperative treatment with a removable brace and a prescription was given. I encouraged elevation and ice to help with resolution of soft tissue swelling. The patient does have some baseline dementia and if compliance with the removable brace becomes an issue I discussed with his that we could place him in a short arm cast. He is okay to discharge from an orthopedic standpoint follow-up in 1 week for repeat x-rays of the wrist and a soft tissue check. If the patient has any issues with his left hip or right shoulder I would recommend contacting Dr. Dominguez and have him follow-up as an outpatient with Dr. Dominguez for these joint replacements. Time with Patient: Greater than 30
--- NOTE | 2018-08-19 12:36 | P.CRDCN ---
History of Present Illness History of present illness: This is a pleasant 83-year-old male past medical history significant for coronary artery disease status post angioplasty and bypass grafting, congestive heart failure of unknown type suspect systolic, hypertension, dyslipidemia and former nicotine dependence. He follows with Dr. Leach for cardiology. We've asked to see him in consultation secondary to heart failure. The patient states he presented to the hospital yesterday after suffering a fall at home. He was walking into his home his screen door closed appropriating him and pushing him forward. He suffered a fracture of the left distal radius. He denies loss of consciousness and he did not hit his head. He denies having symptoms of chest pain, dizziness, shortness of breath or palpitations prior to falling. He does state he has chronic shortness of breath, but not any worsening recently. Incidentally on admission chest x-ray revealed evidence of congestive cardiac failure. He has been initiated on Lasix 40 mg IV 3 times a day. He is seen and examined resting comfortably in bed in no acute distress. He complains of significant discomfort to the left arm. He denies any chest pain, shortness of breath, dizziness, palpitations, nausea, vomiting or diaphoresis. He also denies PND or orthopnea. EKG reveals left bundle branch block. Laboratory data reviewed, WBC 4.3, hemoglobin 11.3, platelets 141, sodium 142, potassium 3.8, creatinine 1.91 with a GFR of 32, NT proBNP 5050, troponin 0.049, 0.058 and 0.059. Current cardiac medications include lisinopril 5 mg daily, zaroxolyn 2.5 mg every other day, Lasix 40 mg in the morning and 20 mg at 2:00, atorvastatin 20 mg daily, aspirin 81 mg daily and amiodarone 200 mg daily. At the time of my exam: CONSTITUTIONAL: Denies fever. Denies chills. EYES: Denies blurred vision. Denies vision changes. Denies eye pain. EARS, NOSE, MOUTH & THROAT: Denies headache. Denies sore throat. Denies ear pain. CARDIOVASCULAR: Denies chest pain. Denies shortness of breath. Denies orthopnea. Denies PND. Denies palpitations. RESPIRATORY: Denies cough. GASTROINTESTINAL: Denies abdominal pain. Denies diarrhea. Denies constipation. Denies nausea. Denies vomiting. MUSCULOSKELETAL: Complains of pain to the left arm myalgias. INTEGUMENTARY: Denies pruitis. Denies rash. NEUROLOGIC: Denies numbness. Denies tingling. Denies weakness. PSYCHIATRIC: Denies anxiety. Denies depression. ENDOCRINE: Denies fatigue. Denies weight change. Denies polydipsia. Denies polyu robby. GENITOURINARY: Denies burning, hematuria or urgency with micturation. HEMATOLOGIC: Denies history of anemia. Denies bleeding. Blood pressure 122/64 rate 64 afebrile maintaining oxygen saturation on nasal cannula GENERAL: This is a 83-year-old male in no apparent distress at the portillo e of my examination. HEENT: Head is atraumatic, normocephalic. Pupils are equal, round. Sclerae anic teric. Conjunctivae are clear. Mucous membranes of the mouth are moist. Neck is supple. There is no jugular venous distention. No carotid bruit is heard. LUNGS: Bibasilar rales, no rhonchi or wheezes. No chest wall tenderness is noted on palpation or with deep breathing. HEART: Regular rate and rhythm with soft systolic ejection murmur at the base, no rubs or gallops. S1 and S2 heard. ABDOMEN: Soft, nontender. Bowel sounds are heard. No organomegaly noted. EXTREMITIES: 2+ bilateral lower extremity pitting edema and no calf tenderness noted. VASCULAR: Radial and dorsalis pedis pulses palpated, no evidence of clubbing. NEUROLOGIC: Patient is awake, alert and oriented x3. ASSESSMENT Mechanical fall resulting in left radial fracture. Conservative nonoperative approach per orthopedics. Acute on chronic congestive heart failure unknown type. Patient states he has been told his heart muscle is weak. Mild troponin elevation of unclear etiology. Possibly related to chronic kidney disease. Coronary artery disease status post bypass grafting. Exact details unavailable. Patient states this was many many years ago. Hypertension Dyslipidemia Arrhythmia, exact type unknown. Patient is on amiodarone but does not know why. PLAN Obtain 2-D echocardiogram and Doppler study to assess cardiac structure and function. Obtain records from his primary door closer. Continue IV Lasix and diuresis. Document accurate intake and output along with daily weights. Follow kidney function and electrolytes daily. Initiated on carvedilol 3.125 mg twice a day. Increase zaroxolyn to daily dosing. Resume aspirin. Continue amiodarone, atorvastatin and lisinopril as previously ordered. Nurse Practitioner note has been reviewed, I agree with a documented findings and plan of care. Patient was seen and examined. Past Medical History Past Medical History: Coronary Artery Disease (CAD), Cancer, Heart Failure, CVA/TIA, Dementia, GERD/Reflux, Hyperlipidemia, Hypertension, Myocardial Infarction ([place]), Musculoskeletal Disorder, Osteoarthritis (OA), Prostate Disorder, Seizure Disorder Additional Past Medical History / Comment(s): HX of URINARY CALCULUS, PERTHES DX, HEMORRAGHIC STROKE,2014 PROSTATE CA, CHF Last Myocardial Infarction Date:: 2009 History of Any Multi-Drug Resistant Organisms: None Reported Past Surgical History: Coronary Bypass/CABG, Heart Catheterization With Stent, Joint Replacement, Prostate Surgery Additional Past Surgical History / Comment(s): JAW SX, LEFT HIP REPLACED X3, RIGHT KNEE REPLACED X2, LEFT SHOULDER REPLACED, CABG X3, CATARACTSX LEFT EYE; Pain Procedures Past Anesthesia/Blood Transfusion Reactions: Postoperative Nausea & Vomiting (PONV) Additional Past Anesthesia/Blood Transfusion Reaction / Comment(s): IN PAST HAS HARD TIME WAKING UP Date of Last Stent Placement:: UNKNOWN Past Psychological History: No Psychological Hx Reported Smoking Status: Former smoker Past Alcohol Use History: None Reported Additional Past Alcohol Use History / Comment(s): started smoking at age 16 or 17, quit smoking age 35 smoked 1/2ppd Past Drug Use History: None Reported - Past Family History Mother Family Medical History: No Reported History Medications and Allergies Home Medications Medication Instructions Recorded Confirmed Type Amiodarone HCl [Pacerone] 200 mg PO QAM 08/02/13 08/18/18 History Aspirin 81 mg PO HS 08/02/13 08/18/18 History Atorvastatin [Lipitor] 20 mg PO QAM 08/02/13 08/18/18 History Furosemide [Lasix] 40 mg PO QAM 08/02/13 08/18/18 History Potassium Chloride 20 meq PO TID 08/02/13 08/18/18 History Diclofenac Sodium Gel [Voltaren 1 gram TOPICAL BID 04/06/16 08/18/18 History Gel] Etanercept [Enbrel] 0.98 ml SQ GARAY 04/06/16 08/18/18 History Gabapentin 100 mg PO QID 04/06/16 08/18/18 History levETIRAcetam [Keppra] 500 mg PO Q12HR 12/21/17 08/18/18 History Albuterol Sulfate [Proventil Hfa] 2 inhaler INHALATION PRN 02/01/18 07/04/18 History Furosemide [Lasix] 20 mg PO 1400 05/10/18 08/18/18 History HYDROcodone/APAP 7.5-325MG [[place] 1 tab PO Q4-6H 08/18/18 08/18/18 History 7.5-325] Lisinopril [Zestril] 5 mg PO DAILY 08/18/18 08/18/18 History Metolazone [Zaroxolyn] 2.5 mg PO Q48H 08/18/18 08/18/18 History clonazePAM [KlonoPIN] 0.5 mg PO HS 08/18/18 08/18/18 History Allergies Allergy/AdvReac Type Severity Reaction Status Date / Time allopurinol AdvReac Hallucinati Verified 08/18/18 16:50 ons famotidine AdvReac Hallucinati Verified 08/18/18 16:50 ons zolpidem [From Ambien] AdvReac Confusion Verified 08/18/18 16:50 Physical Exam Vitals: Vital Signs Temp Pulse Pulse Pulse Resp BP BP 08/19/18 08:00 64 16 08/19/18 07:50 98.1 F 64 16 122/64 08/19/18 03:06 98.2 F 65 18 124/65 08/18/18 23:53 62 18 128/62 08/18/18 20:11 98.1 F 62 16 143/73 08/18/18 19:32 98.1 F 62 18 139/79 08/18/18 18:01 98.1 F 57 L 18 116/56 08/18/18 16:40 57 L 14 137/76 08/18/18 16:20 56 L 12 135/69 08/18/18 16:00 52 L 12 129/79 08/18/18 15:52 53 L 08/18/18 15:40 97.5 F L 53 L 18 139/118 Pulse Ox 08/19/18 08:00 08/19/18 07:50 99 08/19/18 03:06 96 08/18/18 23:53 95 08/18/18 20:11 96 08/18/18 19:32 97 08/18/18 18:01 92 L 08/18/18 16:40 97 08/18/18 16:20 92 L 08/18/18 16:00 94 L 08/18/18 15:52 08/18/18 15:40 95 Intake and Output 08/18/18 08/19/18 08/19/18 22:59 06:59 14:59 Output Total 500 125 Balance -500 -125 Output: Urine 500 125 Other: Voiding Method Urinal # Voids 2 Weight 88.451 kg 88.3 kg Results 08/18/18 15:51 08/18/18 15:51 Cardiac Enzymes 08/18/18 08/18/18 08/18/18 Range/Units 15:51 15:51 21:50 AST 21 (17-59) U/L CK-MB (CK-2) 0.5 0.6 (0.0-2.4) ng/mL Troponin I 0.049 H* 0.058 H* (0.000-0.034) ng/mL 08/19/18 Range/Units 05:33 AST (17-59) U/L CK-MB (CK-2) 0.6 (0.0-2.4) ng/mL Troponin I 0.059 H* (0.000-0.034) ng/mL Coagulation 08/18/18 Range/Units 15:51 PT 10.2 (9.0-12.0) sec APTT 24.2 (22.0-30.0) sec CBC 08/18/18 Range/Units 15:51 WBC 4.3 (3.8-10.6) k/uL RBC 3.19 L (4.30-5.90) m/uL Hgb 11.3 L (13.0-17.5) gm/dL Hct 34.9 L (39.0-53.0) % Plt Count 141 L (150-450) k/uL Comprehensive Metabolic Panel 08/18/18 Range/Units 15:51 Sodium 142 (137-145) mmol/L Potassium 3.8 (3.5-5.1) mmol/L Chloride 103 (98-107) mmol/L Carbon Dioxide 34 H (22-30) mmol/L BUN 33 H (9-20) mg/dL Creatinine 1.91 H (0.66-1.25) mg/dL Glucose 88 (74-99) mg/dL Calcium 8.8 (8.4-10.2) mg/dL AST 21 (17-59) U/L ALT 17 L (21-72) U/L Alkaline Phosphatase 88 (38-126) U/L Total Protein 6.0 L (6.3-8.2) g/dL Albumin 3.6 (3.5-5.0) g/dL Current Medications Generic Name Dose Route Start Last Admin Trade Name Freq PRN Reason Stop Dose Admin Hydrocodone Bitart/Acetaminophen 1 each 08/18/18 17:45 08/19/18 08:39 [place] 7.5-325 PO 1 each Q4HR PRN Administration Pain Amiodarone HCl 200 mg 08/19/18 09:00 08/19/18 08:38 Cordarone PO 200 mg QAM EZE Administration Atorvastatin Calcium 20 mg 08/19/18 09:00 08/19/18 08:41 Lipitor PO 20 mg QAM EZE Administration Carvedilol 3.125 mg 08/19/18 09:45 Coreg PO BID-W/MEALS EZE Clonazepam 0.5 mg 08/18/18 21:00 08/18/18 21:32 Klonopin PO 0.5 mg HS EZE Administration Diclofenac Sodium 1 gm 08/18/18 21:00 08/19/18 08:41 Voltaren Gel TOPICAL 1 gm BID EZE Administration Furosemide 40 mg 08/18/18 18:00 08/19/18 08:56 Lasix IV 40 mg Q8H EZE Administration Gabapentin 100 mg 08/18/18 18:00 08/19/18 08:43 Neurontin PO 100 mg QID EZE Administration Levetiracetam 500 mg 08/18/18 21:00 08/19/18 08:43 Keppra PO 500 mg Q12HR EZE Administration Lisinopril 5 mg 08/19/18 09:00 08/19/18 08:44 Zestril PO 5 mg DAILY EZE Administration Metolazone 2.5 mg 08/20/18 09:00 Zaroxolyn PO DAILY EZE Nitroglycerin 1 inch 08/18/18 18:00 08/19/18 08:44 Nitro-Bid Oint TOPICAL 1 inch QID [facility] Administration Enbrel (Etanercept) 0.98 ml 08/20/18 09:00 SQ GARAY EZE Potassium Chloride 20 meq 08/18/18 22:00 08/19/18 08:44 K-Dur 20 PO 20 meq TID EZE Administration Sodium Chloride 10 ml 08/18/18 21:00 08/18/18 21:33 Saline Flush IV 10 ml BID EZE Administration Intake and Output 08/18/18 08/19/18 08/19/18 22:59 06:59 14:59 Output Total 500 125 Balance -500 -125 Output: Urine 500 125 Other: Voiding Method Urinal # Voids 2 Weight 88.451 kg 88.3 kg 08/18/18 15:51 08/18/18 15:51
--- NOTE | 2018-08-19 12:53 | ECHOF ---
Referral Reason:heart failure MEASUREMENTS -------- HEIGHT: 180.3 cm WEIGHT: 88.0 kg BP: 122/64 RVIDd: 3.6 cm (< 3.3) IVSd: 1.6 cm (0.6 - 1.1) LVIDd: 6.6 cm (3.9 - 5.3) LVPWd: 1.4 cm (0.6 - 1.1) IVSs: 1.7 cm LVIDs: 6.3 cm LVPWs: 1.4 cm LA Diam: 3.9 cm (2.7 - 3.8) LAESV Index (A-L): 30.80 ml/m Ao Diam: 3.8 cm (2.0 - 3.7) AV Cusp: 1.6 cm (1.5 - 2.6) MV EXCURSION: 14.230 mm (> 18.000) MV EF SLOPE: 29 mm/s (70 - 150) EPSS: 2.8 cm MV E Ruy: 0.62 m/s MV DecT: 266 ms MV A Ruy: 0.51 m/s MV E/A Ratio: 1.21 AV maxP.33 mmHg AV meanP.24 mmHg AR PHT: 819 ms RAP: 5.00 mmHg RVSP: 37.10 mmHg FINDINGS -------- Resting bradycardia (HR<60bpm). This was a technically difficult study with suboptimal apical views. The left ventricle is moderately dilated. There is moderate concentric left ventricular hypertrophy . Overall left ventricular systolic function is severely impaired with, an EF between 20 - 25 %. only lateral wall is rani. Global hypokinesis The right ventricle is mildly enlarged. LA is midly dilated 29-33ml/m2. The right atrium is normal in size. 4 ml of Lumason was utilized for enhancement of images. Interatrial and interventricular septum intact. There is mild aortic valve sclerosis. There is mild aortic regurgitation. There is mild aortic st enosis present. Peak/mean gradient across the Aortic Valve is 16.33mmHg / 8.24mmHg. Mild mitral annular calcification present. Mild mitral regurgitation is present. Mild tricuspid regurgitation present. There is mild pulmonary hypertension. The right ventricular systolic pressure, as measured by Doppler, is 37.10mmHg. Trace/mild (physiologic) pulmonic regurgitation. The aortic root is dilated measuring 3.8cm. IVC Not well visulized. There is no pericardial effusion. CONCLUSIONS -------- 1. Resting bradycardia (HR<60bpm). 2. This was a technically difficult study with suboptimal apical views. 3. The left ventricle is moderately dilated. 4. There is moderate concentric left ventricular hypertrophy. 5. Overall left ventricular systolic function is severely impaired with, an EF between 20 - 25 %. 6. only lateral wall is rani. 7. Global hypokinesis 8. The right ventricle is mildly enlarged. 9. LA is midly dilated 29-33ml/m2. 10. The right atrium is normal in size. 11. 4 ml of Lumason was utilized for enhancement of images. 12. Interatrial and interventricular septum intact. 13. There is mild aortic valve sclerosis. 14. There is mild aortic regurgitation. 15. There is mild aortic stenosis present. 16. Peak/mean gradient across the Aortic Valve is 16.33mmHg / 8.24mmHg. 17. Mild mitral annular calcification present. 18. Mild mitral regurgitation is present. 19. Mild tricuspid regurgitation present. 20. There is mild pulmonary hypertension. 21. The right ventricular systolic pressure, as measured by Doppler, is 37.10mmHg. 22. Trace/mild (physiologic) pulmonic regurgitation. 23. The aortic root is dilated measuring 3.8cm. 24. IVC Not well visulized. 25. There is no pericardial effusion. CAR SALTER: Padmini Bose RDCS
[2018-08-19] MEDS: ASPIRIN 81 MG PO SCH (13:18)
[2018-08-19] MEDS: CARVEDILOL 3.125 MG TAB PO SCH ×2 (13:24→16:19)
--- NOTE | 2018-08-19 16:49 | HP ---
HISTORY AND PHYSICAL DATE OF ADMISSION: 08/18/2018. DATE OF SERVICE: 08/19/2018. PRESENTING COMPLAINT: Fall. HISTORY OF PRESENTING COMPLAINT: This is an 83-year-old patient who follows with Dr. Lee, chronic stable medical conditions include coronary artery disease, dementia, GERD, hypertension, hyperlipidemia, osteoarthritis, prostate cancer. The patient does use a walker to get about. The patient took a slip and fall, falling on his left wrist. X-ray showed nondisplaced fracture of the radial styloid process. The patient has been put in a supportive wrap by Orthopedics. Patient has been a bit short of breath, felt to be in congestive heart failure. The patient is not the best historian. A bit tired, short of breath. REVIEW OF SYSTEMS: CONSTITUTIONAL: Tired. HEENT: Decreased hearing. RESPIRATORY: Short of breath, some edema. CARDIOVASCULAR: As above. GASTROINTESTINAL: None. GENITOURINARY: None. MUSCULOSKELETAL: Pain in the left wrist and other joints. DERMATOLOGICAL, HEMATOLOGIC, LYMPHATIC: None. PSYCHIATRY: Forgetful. NEUROLOGICAL: Uses a walker. PAST MEDICAL HISTORY: Coronary artery disease, heart failure, questionable stroke, dementia, GERD, hyperlipidemia, hypertension, osteoarthritis, seizure disorder, , hemorrhagic stroke in 2014, prostate cancer. PAST SURGICAL HISTORY: Coronary bypass stent, prostate surgery, joint surgery, left hip replaced x3, right knee replaced x2, left shoulder replaced. SOCIAL HISTORY: Patient started smoking at age of 16, stopped smoking at age of 35, about half pack a day. Alcohol none. Lives with his . FAMILY HISTORY: Reviewed, noncontributory to presentation. HOME MEDICATIONS: 1. Klonopin 0.5 mg at bedtime. 2. Zestril 5 mg p.o. daily. 3. Keppra 500 mg every 12. 4. Potassium 20 mEq p.o. t.i.d. 5. Zaroxolyn 2.5 p.o. every 48 hours. 6. [place] 7.5 one tab every 4-6 p.r.n. 7. Neurontin 100 mg q.i.d. 8. Lasix 40 mg in the morning 120 mg in the afternoon. 9. Enbrel 0.98 mL subcu on Tuesday. 10.Voltaren gel 1 g topical b.i.d. 11.Lipitor 20 mg p.o. daily. 12.Aspirin 81 mg at bedtime. 13.Amiodarone 200 mg p.o. daily. 14.Proventil 2 puffs p.r.n. ALLERGIES: ALLOPURINOL, PEPCID, AMBIEN. PHYSICAL EXAMINATION: VITAL SIGNS: Vital signs on presentation, temperature 97.5, pulse 53, respirations 18, blood pressure 139/118, pulse 95% on room air. GENERAL APPEARANCE: Average build, lying in bed, tired-appearing. EYES: Pupils equal. Conjunctivae normal. HEENT: External appearance of nose is normal. Oral cavity normal. NECK: JVD unable to assess. Mass not palpable. Respiratory effort increased. LUNGS: Diminished breath sounds. CARDIOVASCULAR: Heart sounds irregular. Some edema. ABDOMEN: Soft, nontender. Liver and spleen not palpable. LYMPHATIC: No lymph nodes palpable in the neck or axilla. PSYCHIATRY: Patient is able answer simple questions. NEUROLOGICAL: Pupils equal. No facial asymmetry. Power and sensation grossly intact. MUSCULOSKELETAL: Ruben wrap dressing over the left breast. INVESTIGATIONS: White count 4.3, hemoglobin 11.3, platelets 141, potassium 3.8, BUN 33, creatinine 1.91. Troponin 0.049 and 0.058. The patient's previous blood work from 2017 shows a BUN of 47, creatinine of 2.02. 2D echo showed the EF of 20 to 25 percent, left ventricular hypertrophy. EKG tracing shows left bundle branch block with a heart rate close to 50. EKG tracing personally reviewed by me. Chest x-ray film personally reviewed by me shows cardiomegaly and pulmonary edema. ASSESSMENT: 1. Acute on chronic congestive heart failure exacerbation from systolic dysfunction EF 20-25 percent. 2. Left bundle branch block. 3. Coronary artery prior history of coronary bypass. 4. 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 5. Gastroesophageal reflux disease. 6. Hypertension. 7. Hyperlipidemia. 8. Primary osteoarthritis. 9. Chronic gait dysfunction uses a walker. 10.Left wrist distal radius fracture secondary to fall. 11.Chronic kidney disease stage 3 from nephrosclerosis. PLAN: Orthopedics has already been consulted. Home medications resumed. The patient's is currently not present here. They could put him in a short-arm cast. The patient has been put on IV diuresis, nitro and beta blanca. Will follow. MMODL / IJN: [id number] /
[2018-08-19] MEDS: clonazePAM 0.5 MG TAB PO SCH (22:16)
[2018-08-20] MEDS: FUROSEMIDE 10 MG/ML 4 ML VIAL IV SCH (03:31)
[2018-08-20] MEDS: HYDROcodone/APAP 7.5-325MG 1 EACH TAB PO PRN ×3 (06:02→19:49)
[2018-08-20] MEDS: CARVEDILOL 3.125 MG TAB PO SCH ×2 (06:02→17:51)
[2018-08-20 07:41] LABS: Calcium 8.5 mg/dL (8.4-10.2); Potassium 3.5 mmol/L (3.5-5.1)
[2018-08-20] MEDS: LISINOPRIL 5 MG TAB PO SCH (08:46)
[2018-08-20] MEDS ORDERED: SODIUM CHLORIDE 0.9% 500 ML 250 ML IV ONE (08:47)
[2018-08-20] MEDS: METOLAZONE 2.5 MG TAB PO SCH (09:38)
[2018-08-20] MEDS: GABAPENTIN 100 MG CAP PO SCH ×4 (09:38→19:41)
[2018-08-20] MEDS: ASPIRIN 81 MG PO SCH (09:38)
[2018-08-20] MEDS: POTASSIUM CHLORIDE ER 20 MEQ TAB.ER PO SCH ×3 (09:38→19:49)
[2018-08-20] MEDS: levETIRAcetam 500 MG TAB PO SCH ×2 (09:39→19:41)
[2018-08-20] MEDS: DICLOFENAC SODIUM GEL 100 GM TUBE TOPICAL SCH ×2 (09:40→19:41)
[2018-08-20] MEDS: AMIODARONE 200 MG TAB PO SCH (09:43)
[2018-08-20] MEDS: ATORVASTATIN 20 MG TAB PO SCH (09:43)
--- NOTE | 2018-08-20 12:12 | P.PN ---
Subjective Progress Note Date: 08/20/18 This is a pleasant 83-year-old male past medical history significant for coronary artery disease status post angioplasty and bypass grafting, congestive heart failure of unknown type suspect systolic, hypertension, dyslipidemia and former nicotine dependence. He follows with Dr. Leach for cardiology. We've asked to see him in consultation secondary to heart failure. The patient states he presented to the hospital yesterday after suffering a fall at home. He was walking into his home his screen door closed appropriating him and pushing him forward. He suffered a fracture of the left distal radius. He denies loss of consciousness and he did not hit his head. He denies having sym ptoms of chest pain, dizziness, shortness of breath or palpitations prior to falling. He does state he has chronic shortness of breath, but not any worsening recently. Incidentally on admission chest x-ray revealed evidence of congestive cardiac failure. He has been initiated on Lasix 40 mg IV 3 times a day. He is seen and examined resting comfortably in bed in no acute distress. He complains of significant discomfort to the left arm. He denies any chest pain, shortness of breath, dizziness, palpitations, nausea, vomiting or diaphoresis. He also denies PND or orthopnea. 08/20/2018 Patient was seen and examined this morning, he is just complaining of generalized aches and pains from his arthritis. Still complains of feeling somewhat short of breath. Blood pressure this morning is 70/40 and 76/54, he did receive some fluids, blood pressure came back up to the 100 systolic range. He was switched over to oral diuretics today. Continues to be on Zaroxolyn, lisinopril, and Coreg. Objective - Vital Signs Vital signs: Vital Signs Temp 97.6 F 08/20/18 08:00 Pulse 74 08/20/18 08:00 Resp 14 08/20/18 08:00 BP 76/54 08/20/18 08:00 Pulse Ox 96 08/20/18 08:00 Intake & Output 08/19/18 08/20/18 08/20/18 18:59 06:59 18:59 Intake Total 430 Output Total 625 75 Balance -195 -75 Weight 88.3 kg 89 kg Intake: Oral 430 Output: Urine 625 75 Other: Voiding Method Urinal # Voids 2 - Exam Blood pressure 122/64 rate 64 afebrile maintaining oxygen saturation on nasal cannula GENERAL: This is a 83-year-old male in no apparent distress at the time of my examination. HEENT: Head is atraumatic, normocephalic. Pupils are equal, round. Sclerae anicteric. Conjunctivae are clear. Mucous membranes of the mouth are moist. Neck is supple. There is no jugular venous distention. No carotid bruit is heard. LUNGS: Bibasilar rales, no rhonchi or wheezes. No chest wall tenderness is noted on palpation or with deep breathing. HEART: Regular rate and rhythm with soft systolic ejection murmur at the base, no rubs or gallops. S1 and S2 heard. ABDOMEN: Soft, nontender. Bowel sounds are heard. No organomegaly noted. EXTREMITIES: 2+ bilateral lower extremity pitting edema and no calf tenderness noted. VASCULAR: Radial and dorsalis pedis pulses palpated, no evidence of clubbing. NEUROLOGIC: Patient is awake, alert and oriented x3. - Labs CBC & Chem 7: 08/18/18 15:51 08/20/18 06:48 Labs: Abnormal Lab Results - Last 24 Hours (Table) 08/20/18 Range/Units 06:48 Carbon Dioxide 39 H (22-30) mmol/L BUN 36 H (9-20) mg/dL Creatinine 2.44 H (0.66-1.25) mg/dL Assessment and Plan Plan: ASSESSMENT and plan #1 Mechanical fall resulting in left radial fracture. Conservative nonoperative approach per orthopedics. #2 Acute on chronic congestive heart failure systolic. #3 Mild troponin elevation of unclear etiology. Possibly related to chronic kidney disease. #4 Coronary artery disease status post bypass grafting. Exact details unavailable. Patient states this was many many years ago. #5 Hypertension #6 Dyslipidemia #7 Arrhythmia, exact type unknown. Patient is on amiodarone but does not know why. Plan Patient has been changed over to oral diuretics this morning, he was given some IV fluids because of hypotension and the blood pressure seems to have improved. We will continue him on his current medications. Further recommendations to follow. Echocardiogram with Doppler study showed an ejection fraction of 20- 25%. DNP note has been reviewed, I agree with a documented findings and plan of care. Patient was seen and examined.
--- NOTE | 2018-08-20 14:42 | P.PN ---
Subjective Progress Note Date: 08/20/18 This patient is an 83-year-old male with multiple comorbidities that was admitted to internal medicine yesterday on 08/19/2018 following a fall at home. On presentation to the emergency department, the patient was experiencing significant left wrist pain. The patient was found to have a left nondisplaced radial styloid fracture. The patient notes chronic pain in both his bilateral wrists secondary to arthritis. Orthopedics was consulted for further evaluation and treatment. At the time of my exam, the patient is currently complaining of left wrist pain. He states it does feel better in the brace. He states he is experiencing mild pain in the right wrist, although this is chronic and not new following to his recent fall. Patient denies any additional orthopedic complaints currently. Objective - Vital Signs Vital signs: Vital Signs Temp 98.1 F 08/20/18 12:00 Pulse 61 08/20/18 12:00 Resp 14 08/20/18 12:00 BP 102/54 08/20/18 12:00 Pulse Ox 93 L 08/20/18 12:00 Intake & Output 08/19/18 08/20/18 08/20/18 18:59 06:59 18:59 Intake Total 430 Output Total 625 75 Balance -195 -75 Weight 88.3 kg 89 kg Intake: Oral 430 Output: Urine 625 75 Other: Voiding Method Urinal Urinal # Voids 2 - Exam On examination, the patient is lying in bed in no apparent distress. Patient is alert and oriented 3. His head appears to atraumatic and normocephalic. His breathing appears nonlabored. On inspection of the left wrist there is a wrist brace in place. The brace was removed and reveals diffuse swelling of the wrist and hand. There are no open wounds or lacerations. There is no ecchymosis, erythema, or skin discoloration. There is pain on palpation of the distal radius. There is no pain on palpation of the hand or fingers, elbow, or the shoulder. Decreased range of motion of the wrist secondary to pain. Patient is able to move all fingers and his thumb without issue or pain. The hand is warm and well-perfused with brisk capillary refill distally. Sensation is intact to light touch of the hand in the distributions of the median, ulnar, radial nerves. - Labs CBC & Chem 7: 08/18/18 15:51 08/20/18 06:48 Labs: Abnormal Lab Results - Last 24 Hours (Table) 08/20/18 Range/Units 06:48 Carbon Dioxide 39 H (22-30) mmol/L BUN 36 H (9-20) mg/dL Creatinine 2.44 H (0.66-1.25) mg/dL - Imaging and Cardiology Left wrist x-ray 08/18/18: Nondisplaced radial styloid fracture. Diffuse deg enerative changes. Pelvis x-ray 08/18/18: No acute fractures. Left hip replacement in anatomic alignment. Assessment and Plan Assessment: Nondisplaced radial styloid fracture, left. Plan: - Recommended continued nonoperative treatment. Recommended the patient continue the removable wrist brace. - Recommended ice and elevation of the left wrist for swelling and pain control. - Patient will follow-up in the office in 1 week after discharge for repeat x- rays and a soft tissue check. - We'll continue to make recommendations as needed. Patient discussed with Dr. Figueroa.
[2018-08-20] MEDS: clonazePAM 0.5 MG TAB PO SCH (19:49)
--- NOTE | 2018-08-20 23:27 | PN ---
PROGRESS NOTE DATE OF SERVICE: August 20, 2018. PRESENTING COMPLAINT: Fall. INTERVAL HISTORY: This patient presented with left wrist fracture. Finding it difficult to get about. Family looking to the patient go to inpatient rehab. Otherwise, tolerating a diet. REVIEW OF SYSTEMS: Done for constitutional, cardiovascular, GI, pulmonary and relevant findings as above. CURRENT MEDICATIONS: Reviewed. PHYSICAL EXAMINATION: VITAL SIGNS: Temperature 97.4, pulse 72, respiration 16, blood pressure 102/58. Pulse ox 96 percent on 2 L. GENERAL APPEARANCE: Lying in bed, awake. EYES: Pupils equal. Conjunctivae normal. NECK: JVD unable to assess. Mass not palpable. RESPIRATORY: Effort increased. LUNGS: Decreased breath sounds. CARDIOVASCULAR: Heart sounds irregular. Some edema. ABDOMEN: Soft, nontender. Liver and spleen not palpable. PSYCHIATRY: Awake, answering simple questions. MUSCULOSKELETAL: Left wrist is wrapped up. INVESTIGATIONS: BUN 36, creatinine 2.44. ASSESSMENT: 1. Acute on chronic congestive heart failure exacerbation from systolic dysfunction, ejection EF 20% to 25%, now stabilized. 2. Left bundle branch block. 3. Coronary artery disease with prior history of coronary artery bypass. 4. 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 5. Gastroesophageal reflux disease. 6. Hypertension. 7. Hyperlipidemia. 8. Primary osteoarthritis. 9. Chronic gait dysfunction uses a walker. 10.Left wrist distal fracture secondary to fall. 11.Chronic kidney stage 3 from nephrosclerosis. 12.Acute renal failure prerenal from diuresis. PLAN: At this point, we will hold off patient's Lasix and ASAEL inhibitor in the morning. Repeat electrolytes in the morning. Care was discussed with the patient. Looking at patient going to the [facility]. MMODL / IJN: [id number] /
[2018-08-21] MEDS: HYDROcodone/APAP 7.5-325MG 1 EACH TAB PO PRN ×3 (05:09→20:13)
[2018-08-21] MEDS: CARVEDILOL 3.125 MG TAB PO SCH (06:37)
[2018-08-21 06:55] LABS: Calcium 8.7 mg/dL (8.4-10.2)
[2018-08-21] MEDS: levETIRAcetam 500 MG TAB PO SCH ×2 (09:38→20:14)
[2018-08-21] MEDS: FUROSEMIDE 40 MG TAB PO SCH (09:38)
[2018-08-21] MEDS: ASPIRIN 81 MG PO SCH (09:38)
[2018-08-21] MEDS: POTASSIUM CHLORIDE ER 20 MEQ TAB.ER PO SCH ×3 (09:38→20:14)
[2018-08-21] MEDS: AMIODARONE 200 MG TAB PO SCH (09:38)
[2018-08-21] MEDS: GABAPENTIN 100 MG CAP PO SCH ×4 (09:38→20:14)
[2018-08-21] MEDS: ATORVASTATIN 20 MG TAB PO SCH (09:38)
[2018-08-21] MEDS: DICLOFENAC SODIUM GEL 100 GM TUBE TOPICAL SCH ×2 (09:39→20:14)
[2018-08-21] MEDS: METOLAZONE 2.5 MG TAB PO SCH (09:43)
--- NOTE | 2018-08-21 13:12 | P.PN ---
Subjective Progress Note Date: 08/21/18 This is a pleasant 83-year-old male past medical history significant for coronary artery disease status post angioplasty and bypass grafting, congestive heart failure of unknown type suspect systolic, hypertension, dyslipidemia and former nicotine dependence. He follows with Dr. Leach for cardiology. We've asked to see him in consultation secondary to heart failure. The patient states he presented to the hospital yesterday after suffering a fall at home. He was walking into his home his screen door closed appropriating him and pushing him forward. He suffered a fracture of the left distal radius. He denies loss of consciousness and he did not hit his head. He denies having sym ptoms of chest pain, dizziness, shortness of breath or palpitations prior to falling. He does state he has chronic shortness of breath, but not any worsening recently. Incidentally on admission chest x-ray revealed evidence of congestive cardiac failure. He has been initiated on Lasix 40 mg IV 3 times a day. He is seen and examined resting comfortably in bed in no acute distress. He complains of significant discomfort to the left arm. He denies any chest pain, shortness of breath, dizziness, palpitations, nausea, vomiting or diaphoresis. He also denies PND or orthopnea. 08/20/2018 Patient was seen and examined this morning, he is just complaining of generalized aches and pains from his arthritis. Still complains of feeling somewhat short of breath. Blood pressure this morning is 70/40 and 76/54, he did receive some fluids, blood pressure came back up to the 100 systolic range. He was switched over to oral diuretics today. Continues to be on Zaroxolyn, lisinopril, and Coreg. 08/21/2018 Patient seen and examined this morning, he sitting up in the chair at bedside, overall is starting to feel much better. On oral diuretics today. Blood pressure 120/60 with a heart rate in the 60s, 96% on 2 L of oxygen. Sodium 140, potassium 4.0, BUN 43 and creatinine 2.3. Objective - Vital Signs Vital signs: Vital Signs Temp 97.5 F L 08/21/18 08:00 Pulse 67 08/21/18 12:00 Resp 16 08/21/18 12:00 BP 128/60 08/21/18 12:00 Pulse Ox 96 08/21/18 12:00 Intake & Output 08/20/18 08/21/18 08/21/18 18:59 06:59 18:59 Intake Total 430 200 Output Total 100 300 Balance 330 -100 Intake: Oral 430 200 Output: Urine 100 300 Other: Voiding Method Urinal Urinal Urinal # Voids 2 1 - Exam Blood pressure 122/64 rate 64 afebrile maintaining oxygen saturation on nasal cannula GENERAL: This is a 83-year-old male in no apparent distress at the time of my examination. HEENT: Head is atraumatic, normocephalic. Pupils are equal, round. Sclerae anicteric. Conjunctivae are clear. Mucous membranes of the mouth are moist. Neck is supple. There is no jugular venous distention. No carotid bruit is heard. LUNGS: Bibasilar rales, no rhonchi or wheezes. No chest wall tenderness is noted on palpation or with deep breathing. HEART: Regular rate and rhythm with soft systolic ejection murmur at the base, no rubs or gallops. S1 and S2 heard. ABDOMEN: Soft, nontender. Bowel sounds are heard. No organomegaly noted. EXTREMITIES: 2+ bilateral lower extremity pitting edema and no calf tenderness noted. VASCULAR: Radial and dorsalis pedis pulses palpated, no evidence of clubbing. NEUROLOGIC: Patient is awake, alert and oriented x3. - Labs CBC & Chem 7: 08/18/18 15:51 08/21/18 06:17 Labs: Abnormal Lab Results - Last 24 Hours (Table) 08/21/18 Range/Units 06:17 Carbon Dioxide 36 H (22-30) mmol/L BUN 43 H (9-20) mg/dL Creatinine 2.36 H (0.66-1.25) mg/dL Glucose 101 H (74-99) mg/dL Assessment and Plan Plan: ASSESSMENT and plan #1 Mechanical fall resulting in left radial fracture. Conservative nonoperative approach per orthopedics. #2 Acute on chronic congestive heart failure systolic. #3 Mild troponin elevation of unclear etiology. Possibly related to chronic kidney disease. #4 Coronary artery disease status post bypass grafting. Exact details unavailable. Patient states this was many many years ago. #5 Hypertension #6 Dyslipidemia #7 Arrhythmia, exact type unknown. Patient is on amiodarone but does not know why. Plan From cardiology's perspective, we'll recommend to continue this patient on his current medications. He will need to follow-up with his supervisor sample at the point of discharge. DNP note has been reviewed, I agree with a documented findings and plan of care. Patient was seen and examined.
[2018-08-21] MEDS: clonazePAM 0.5 MG TAB PO SCH (20:13)
--- NOTE | 2018-08-21 23:01 | PN ---
PROGRESS NOTE DATE OF SERVICE: 08/21/2018. PRESENTING COMPLAINT: Fall. INTERVAL HISTORY: Patient presented with fall with a left distal radius fracture, being managed conservatively. The patient has trouble getting about. public health worker looking into placement. Otherwise, patient tolerating a diet. REVIEW OF SYSTEMS: Done for constitutional, cardiovascular, GI, pulmonary; relevant findings as above. CURRENT MEDICATIONS: Current medications are reviewed. PHYSICAL EXAMINATION: VITAL SIGNS: Temperature 97.5, pulse 85, respirations 14, blood pressure 113/61, pulse ox 97% on 2 L. GENERAL APPEARANCE: Sitting up, awake. EYES: Pupils are equal. Conjunctivae normal. NECK: JVD not raised. Mass not palpable. RESPIRATORY: Effort increased. LUNGS: Decreased breath sounds. CARDIOVASCULAR: Heart sounds irregular. Some edema. ABDOMEN: Soft, nontender. Liver and spleen not palpable. PSYCHIATRY: Awake, answering simple questions. MUSCULOSKELETAL: Left wrist in an Ruben wrap. INVESTIGATIONS: Potassium 4, BUN 43, creatinine 2.36. ASSESSMENT: 1. Acute on chronic congestive heart failure exacerbation from systolic dysfunction EF 20-25 percent, now stabilized. 2. Left bundle branch block. 3. Coronary artery disease, prior history of coronary artery bypass. 4. 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 5. Gastroesophageal reflux disease. 6. Hypertension. 7. Hyperlipidemia. 8. Primary osteoarthritis. 9. Chronic gait dysfunction uses a walker. 10.Distal radius fracture secondary to fall in a support. 11.Chronic kidney disease stage 3 from nephrosclerosis. 12.Acute renal failure prerenal from diuresis. PLAN: Patient's BUN and creatinine has started to turn around. We will keep a close eye on the electrolytes. public health worker is looking into placement. Talked to the . Follow. Aldactone 12.5 mg will be added. Dose of potassium supplement will be cut back. MMODL / IJN: [id number] /
[2018-08-22] MEDS: HYDROcodone/APAP 7.5-325MG 1 EACH TAB PO PRN (05:39)
[2018-08-22 07:01] LABS: Calcium 8.7 mg/dL (8.4-10.2); Potassium 3.2 mmol/L (3.5-5.1)
[2018-08-22] MEDS: levETIRAcetam 500 MG TAB PO SCH (08:08)
[2018-08-22] MEDS: AMIODARONE 200 MG TAB PO SCH (08:08)
[2018-08-22] MEDS: ATORVASTATIN 20 MG TAB PO SCH (08:08)
[2018-08-22] MEDS: FUROSEMIDE 40 MG TAB PO SCH (08:08)
[2018-08-22] MEDS: GABAPENTIN 100 MG CAP PO SCH ×2 (08:08→12:33)
[2018-08-22] MEDS: ASPIRIN 81 MG PO SCH (08:09)
[2018-08-22] MEDS ORDERED: SPIRONOLACTONE 25 MG TAB PO SCH (09:00)
[2018-08-22] MEDS ORDERED: POTASSIUM CHLORIDE ER 10 MEQ TAB.ER.PRT PO SCH (09:00)
[2018-08-22 09:28] VITALS: BP 130/71; PULSE 70; RESP 20; TEMP 98
[2018-08-22] MEDS: DICLOFENAC SODIUM GEL 100 GM TUBE TOPICAL SCH (12:37)
--- NOTE | 2018-08-22 13:11 | DS ---
DISCHARGE SUMMARY DATE OF ADMISSION: 08/18/2018 DATE OF DISCHARGE: 08/22/2018 FINAL DIAGNOSES: 1. Acute on chronic congestive heart failure exacerbation from systolic dysfunction, ejection fraction 20% to 25%, POA. 2. Chronic left bundle branch block. 3. Coronary artery disease, prior history of coronary artery bypass. 4. Moderate cognitive impairment from late onset dementia. 5. Gastroesophageal reflux disease. 6. Essential hypertension. 7. Hyperlipidemia. 8. Primary osteoarthritis. 9. Chronic gait dysfunction uses a walker. 10.Left distal radius fracture secondary to fall, wrist in a support. 11.Chronic kidney stage III from nephrosclerosis. 12.Acute renal failure, prerenal from diuresis. HOSPITAL COURSE: This patient presented with CHF exacerbation. Also took a fall with a fracture to the left radius, was given diuretics. Patient did go into further renal failure. Creatinine bumped up to 2.36. It was down to 1.82 prior to discharge. Patient has a fractured left distal radius, managed conservatively. Seen by Dr. Figueroa from Orthopedics and will follow up in the office in a week's time. Care was discussed with the . PHYSICAL EXAMINATION: Temperature 98, pulse 70, respiration 20, blood pressure 130/71, pulse ox 98% on room air. LUNGS: Decreased breath sounds. CARDIOVASCULAR: First and second sounds are normal. INVESTIGATIONS: Potassium 3.2, BUN 43, creatinine 1.82. Patient did have a 2-D echocardiogram that showed EF of 20%-25%, moderate concentric left ventricular hypertrophy. CONSULTATION: 1. Dr. Chato Gil from Cardiology. 2. Dr. Figueroa from Orthopedics. DISCHARGE MEDICATIONS: 1. Amiodarone 200 mg p.o. daily. 2. Aspirin 81 mg q.h.s. 3. Lipitor 20 mg p.o. daily. 4. Voltaren gel 1 g topical b.i.d. 5. Enbrel 0.98 mL subcu on Sundays. 6. Gabapentin 100 mg p.o. q.i.d. 7. Keppra 500 mg q.12. 8. Proventil 2 puffs q. 6 p.r.n. 9. Zestril 5 mg a day. 10.Lasix 40 mg a day. 11.[place] 7.5 one tablet q.6 p.r.n. 12.Aldactone 12.5 p.o. mg daily. 13.Klonopin 0.5 mg p.o. q.h.s. DISPOSITION: [facility]. Follow up with Dr. Lee or 1 or 2 days. Follow up with Dr. Figueroa in 1 week. Left wrist orders including wrist brace per Orthopedics. MMODL / IJN: [id number] /
--- NOTE | 2018-08-22 17:38 | PN ---
PROGRESS NOTE Mr. Sky is a pleasant 83-year-old gentleman with past medical history significant for coronary artery disease and prior angioplasty as well as bypass surgery, congestive heart failure, systolic in nature; hypertension, hyperlipidemia, and former nicotine dependence. We were initially asked to see the patient because of congestive cardiac failure. The patient was seen and examined this morning, sitting up in his chair at bedside, overall is feeling much better. Physical therapy was in working with him today. He is hemodynamically stable. Arrangements are being made for the patient to be transferred to the ECF later today. PHYSICAL EXAMINATION: GENERAL: 83-year-old male in no apparent distress at the time of my examination. HEENT: Head is atraumatic, normocephalic. Pupils are equal, round, sclerae anicteric. Conjunctivae are clear. No elevated jugular venous pressure. LUNGS: Reveal bibasilar rales, improved from yesterday. HEART: S1, S2. A systolic ejection murmur is heard at the base. ABDOMEN: Soft, nontender. Bowel sounds are heard. EXTREMITIES: 2+ bilateral lower extremity pitting edema. The patient is awake and alert and oriented x3. ASSESSMENT AND PLAN: 1. Mechanical fall resulting in left radial fracture, conservative nonoperative approach per Orthopedics. 2. Acute on chronic systolic congestive heart failure. 3. Mild troponin abnormality, likely related to abnormal kidneys. 4. Coronary artery disease with prior bypass surgery and PCI. 5. Hypertension. 6. Hyperlipidemia. PLAN: From cardiology's perspective, patient may be transferred to ECF. He follows with a holder pile driving out of town and he has been recommended to make an appointment with him within the upcoming next 1 week. MMODL / IJN: [id number] /
== END 2018-08-22 14:44 | DRG 291 ==
LOC: EC 15:34 → 1SOBS 17:51 → 3SCARD 18:10 → OBSVTOIN 08-19 18:02
PROVIDERS: ADMIT Hospitalist; ATTEND Hospitalist
DX: I13.0 Hypertensive heart and chronic kidney disease with heart failure and stage 1 through stage 4 chronic kidney disease, or unspecified chronic kidney disease (principal); I50.23 Acute on chronic systolic (congestive) heart failure; S52.515A Nondisplaced fracture of left radial styloid process, initial encounter for closed fracture; N17.9 Acute kidney failure, unspecified; Z85.46 Personal history of malignant neoplasm of prostate; E78.5 Hyperlipidemia, unspecified; F03.90 Unspecified dementia, unspecified severity, without behavioral disturbance, psychotic disturbance, mood disturbance, and anxiety; G40.909 Epilepsy, unspecified, not intractable, without status epilepticus; G89.29 Other chronic pain; I25.10 Atherosclerotic heart disease of native coronary artery without angina pectoris; I25.2 Old myocardial infarction; I44.7 Left bundle-branch block, unspecified; K21.9 Gastro-esophageal reflux disease without esophagitis; M19.90 Unspecified osteoarthritis, unspecified site; N18.3 Chronic kidney disease, stage 3 (moderate); W01.0XXA Fall on same level from slipping, tripping and stumbling without subsequent striking against object, initial encounter; W20.8XXA Other cause of strike by thrown, projected or falling object, initial encounter; Y92.009 Unspecified place in unspecified non-institutional (private) residence as the place of occurrence of the external cause; Z79.82 Long term (current) use of aspirin; Z79.899 Other long term (current) drug therapy; Z86.73 Personal history of transient ischemic attack (TIA), and cerebral infarction without residual deficits; Z87.442 Personal history of urinary calculi; Z87.891 Personal history of nicotine dependence; Z95.1 Presence of aortocoronary bypass graft; Z96.612 Presence of left artificial shoulder joint; Z96.642 Presence of left artificial hip joint; Z98.61 Coronary angioplasty status; Z96.651 Presence of right artificial knee joint; Z98.42 Cataract extraction status, left eye; T50.2X5A Adverse effect of carbonic-anhydrase inhibitors, benzothiadiazides and other diuretics, initial encounter; I49.9 Cardiac arrhythmia, unspecified; R74.8 Abnormal levels of other serum enzymes; R26.2 Difficulty in walking, not elsewhere classified
CPT/HCPCS: 36415; 71045; 72170; 80048; 80053; 82550; 82553; 83880; 84484; 85025; 85610; 85730; 93005; 93306; 96374; 96375; 99285